=== PATIENT | female | born 1985 | race Caucasian/White ===

== ENCOUNTER 2021-05-12 10:48 | Outpatient (REF) | payer MEDICAID, SELFPAY ==
[2021-05-12 14:41] LABS: Alanine Aminotransferase 23 U/L (0-31); Albumin Level 4.3 g/dL (3.5-5.0); Alkaline Phosphatase 56 U/L (39-117); Anion Gap 12 (12-20); Aspartate Amino Transferase 18 U/L (5-31); Bilirubin Total < 0.2 mg/dL (0.0-1.0); Blood Urea Nitrogen 10 mg/dL (9-16); Calcium 9.3 mg/dL (8.4-10.2); Carbon Dioxide 26 mmol/L (22-29); Chloride 105 mmol/L (96-108); Cholesterol 227 mg/dL; Estimated Glomerular Filt Rate > 60; Glucose Fasting 110 mg/dL (60-99); HDL Cholesterol 53 mg/dL; LDL Cholesterol Calculated 150 mg/dl; Potassium 4.1 mmol/L (3.3-5.1); Sodium 139 mmol/L (135-145); Triglycerides 124 mg/dL
[2021-05-12 15:03] LABS: TSH reflex Free T4 0.74 uIU/mL (0.32-4.0)
[2021-05-13 08:20] LABS: HBc Num1 0.13 S/CO (0.00-0.79); Hepatitis B Core Antibody Nonreactive (Nonreactive); Hepatitis B Surface Antigen Negative (Negative); ~HepC Num1 0.18 S/CO (0.00-0.79); ~Hepatitis C Antibody Nonreactive (Nonreactive)
[2021-05-13 08:42] LABS: HBS Num1 32.69 mIU/mL (0-7.99); HIV AB/AG Nonreactive (Nonreactive); HIV Num 1 0.06 S/CO (0.00-0.99); ~Hepatitis B Surface Antibody REACTIVE (Nonreactive)
[2021-05-13 09:07] LABS: Syphilis Screen Nonreactive (Nonreactive)
== END 2021-05-12 10:49 | disposition home or self-care (01) ==
LOC: HO.WFDLDS 10:48
PROVIDERS: Visit Provider Family Medicine
DX: Z00.00 Encounter for general adult medical examination without abnormal findings (principal); Z11.3 Encounter for screening for infections with a predominantly sexual mode of transmission; Z11.4 Encounter for screening for human immunodeficiency virus [HIV]
CPT/HCPCS: 36415; 80053; 80061; 84443; 86704; 86706; 86780; 86803; 87340; 87389

== ENCOUNTER 2021-06-09 08:51 | Outpatient (REF) | payer OTHER, SELFPAY ==
[2021-06-10 10:58] LABS: CT PCR NOT DETECTED (Not Detect.); NG PCR NOT DETECTED (Not Detect.)
[2021-06-11 10:05] LABS: BV Int Neg Control Negative (Negative); BV Int Pos Control Positive (Positive)
[2021-06-11 16:37] LABS: HPV mRNA E6/E7 rflx Not Detected (Not Detected)
== END 2021-06-09 08:52 | disposition home or self-care (01) ==
LOC: HO.LAB 08:51
PROVIDERS: PCP Family Medicine; Visit Provider Advanced Practice Midwife
DX: Z01.411 Encounter for gynecological examination (general) (routine) with abnormal findings (principal); Z11.51 Encounter for screening for human papillomavirus (HPV); Z11.3 Encounter for screening for infections with a predominantly sexual mode of transmission; N92.0 Excessive and frequent menstruation with regular cycle; R10.2 Pelvic and perineal pain; G89.29 Other chronic pain; Z20.2 Contact with and (suspected) exposure to infections with a predominantly sexual mode of transmission
CPT/HCPCS: 87480; 87491; 87510; 87591; 87624; 87660; 88142

== ENCOUNTER 2021-06-10 09:48 | Outpatient (REF) | payer OTHER, SELFPAY ==
--- NOTE | 2021-06-10 12:58 | MHC.AU.ANR ---
Adult Audiological Evaluation Date of Visit: 06/10/21 Reason for Appointment: Audiological evaluation due to concern for decreased hearing. Patient reports that over the past several months she has noticed difficulty hearing and understanding speech, particularly from the right ear. She notes that the right ear feels blocked. She states that she's often asking for repetition and gets frustrated when she cannot hear well. Patient also notes that her primary care physician thought she had a perforation in the right tympanic membrane. She notes that she has had pain in the right ear as well. Patient reports that in 2018 she had an ear infection that lasted for eight months. She states that she was treated with several rounds of different antibiotics but it didn't seem to help. Does patient feel they have a hearing loss?: Yes If Yes, Which Ear?: Right Ear When Was Hearing Difficulty First Noticed?: over the past few months Has hearing been tested previously?: No Hearing Handicap Inventory: HHIE SCORE: 22 Based on HHIE score, patient has: Mild to moderate perceived hearing handicap Ear History: Recent Ear Pain: Right Ear Family History of Hearing Loss?: Yes Recent Ear Infections: Both Ears in 2018 Medical History: Medical History: Headache Allergies: Latex, powdered gloves, adhesives glue/tape Otoscopy: Right Ear: Unremarkable, did not visualize a perforation Left Ear: Unremarkable Tympanometry: Tympanometry performed due to: History of middle ear dysfunction Right Ear: Normal Middle Ear System (Type A) Left Ear: Normal Middle Ear System (Type A) Hearing Evaluation: Transducer(s) Used: Insert Earphones, Bone Conduction Method: Conventional Audiometry Stimuli Used: Pure Tones Right Ear: Description of Hearing: Normal hearing from 250-8000 Hz. There is a 10-20 dBHL air-bone gap in the right ear from 250-1000 Hz, indicating a mild conductive component. Left Ear: Description of Hearing: Normal hearing from 250-8000 Hz. Speech Recognition Threshold (SRT): Method Used: Monitored Live Voice Stimuli Used: Spondee Words Right Ear: 15 dBHL Left Ear: 15 dBHL Word Discrimination: Method: Recorded Lists Word Lists Used: NU-6 Right Ear: 92% at 55 dBHL Left Ear: 100% at 55 dBHL Interpretation of Results: Mild conductive component in the right ear, which may cause speech to sound muffled and cause the right ear to feel blocked. Recommendations: Audiological re-evaluation in one year. Referral to Ear, Nose, and Throat is recommended to address concerns for the right ear and slight conductive component. Diagnosis: Primary Diagnosis: H93.293 Abnormal Auditory Perception Services Performed: Services Performed: Comprehensive Audiological Evaluation (CPT 57938) Tympanometry (CPT 77078) Signature: Provider: Phillip Nieto, CCC-A
== END 2021-06-10 09:49 | disposition home or self-care (01) ==
LOC: HO.SH 09:48
PROVIDERS: Visit Provider Family Medicine
DX: H91.90 Unspecified hearing loss, unspecified ear (principal)
CPT/HCPCS: 92557; 92567

== ENCOUNTER 2021-07-09 10:00 | Outpatient (RCR) | payer OTHER, SELFPAY ==
--- NOTE | 2021-06-15 15:08 | MHC.PT.OD ---
[facility] [place] Office [place] Office [place] Office [address] Viridiana Rodriguez [address] [phone] F: [phone] F: [phone] F: [phone] F: [phone] Physical Therapy Daily Note Diagnosis: PT eval and treat; M25.562 Pain in left knee signed by Dr. Medrano on 05/13/21 Date of Surgery: Date of Evaluation: 06/04/21 Date of Treatment: 06/15/21 Treatments to Date: 3 Cancellations to Date: No Shows to Date: Authorized Visits: 12 Insurance End Date: Precautions/ Contraindications: Subjective: I just came from a four hour car ride and its killing me Pain Score and Location: 9. L KNEE Objective Flowsheet: Tests & Measures Exercises Seat #9 trialed after application of Zapata taping no added resistance for gentle revolution> posterior> fwd x 10 minutes Crepitus palpated on bike despite trial Zapata taping Standing prostretch x 30 sec hold x 5R each LE, standing gastroc/soleus stretch x 4R x 20 sec hold (issued for HEP), AROM heel prop knee extension stretch x 5 minutes (-3 today with passive knee extension stretch), isometric quad sets x 2 sets 10R, with bolster under knee- poor tolerance without support under knee, seated hamstring stretch x 4R x 20 sec hold. AROM heel slide (to 105 today) Standing active extension with quad set reviewed, encouraged gentle AROM avoidance of walking with knee flexed as able. Trialed Zapata taping for correction of L lateral tilt/glide with some improvement reduction in severity of sx noted. Trialed exercises with tape on, removed prior to leaving. Pt expressed relief with V strip ROCKtape application with education re: removal/application/educated to remove if irritating to skin. Education re: PFPS ortho info handout sheet for patient, education re: findings of evaluation, indications for treatment, advocated to reach out to MD to inform him poor outcome of trial of naproxen- asked to speak with MD inquire re: trial of using advil more than just at night due to (+) response with use, advocated use of ice prn Modalities Trial of Select TENS unit cross patterned around R knee while in flexion over bolster x 15 minutes knee setting intensity 3.5 ma in effort to ease patient's pain at start of session. Poor tolerance for passive extension trial. She reports use of rolling pin over ITB and quadriceps at home. Pt deferred ice. Assessment: Pt presents to third session of PT today, improving lack of knee extension AROM in supine and standing compared to initial evaluation. She is able to achieve with passive stretch -3 AAROM. She continues to exhibit poor quad strength, palpable crepitus under patella, and rates pain as 9/10 stating she drove 4 hours this am prior to session. She has hamstring and gastroc>soleus limitation, has been issued HEP to address tissue restrictions related to this. She also reports sx of pain consistent with plantar fasciitis> start of achilles tendonitis on her R LE. She is TTP medial jt line and posterior lateral joint line distal ITB L LE- consistent with PFPS and (reports of history of significant swelling back in February/March ? meniscal involvement. Educated re: multiple approaches to taping; will work to aide/support knee-cap to improve lateral tracking/reduce pain. Pt VERY sensitive to even light palpation over global knee and HS insertion this date. ?? psychosomatic She reports hx anxiety. Encouraged awareness for gentle knee extension in standing, educated can wear tape for multiple days (ROCKTAPE V strip to offload tibiofemoral joint with monitor of skin response. Pt has reported previous use of ROCKTape with no skin irritation. We trialed Zapata tape for patellar correction in the office but this was removed prior to patient leaving. She may benefit from referral to orthopedics; she inquires about need for xray. She has denies hx trauma; educate that course of therapy will take time. She may benefit from a trial of a patellar stabilizing sleeve in conjunction with ROM and strengthening activities. This could be obtained from orthopedics. AROM -3 to 105 with poor gait mechanics. PT Plan: KT VS ZAPATA TAPE FOR PATELLA ALIGNMENT, LE STRENGTHENING OPEN CHAIN>CLOSED CHAIN TOLERATED. ST WORK PRN. Short Term Goals: 1. L knee AROM -5 degrees ext. 2. Strength L SLR with good eccentric control. 3. Pain reduced by 50% during ADLs/IADLS. 4. Initiate HEP. Head Well Puller Goals: 1. L knee ext 0. 2. L knee flexion 135 sx <2/10. 3. Strengthen hip abductors 5/5 B. 4. Strengthen hip extension 5/5 B. Electronically signed by: Vane Forman PT, DPT
--- NOTE | 2021-06-18 10:51 | MHC.PT.OD ---
[facility] [place] Office [place] Office [place] Office [address] Viridiana Rodriguez [address] [phone] F: [phone] F: [phone] F: [phone] F: [phone] Physical Therapy Daily Note Diagnosis: PT eval and treat; M25.562 Pain in left knee signed by Dr. Medrano on 05/13/21 Date of Surgery: Date of Evaluation: 06/04/21 Date of Treatment: 06/18/21 Treatments to Date: 4 Cancellations to Date: No Shows to Date: Authorized Visits: 12 Insurance End Date: Precautions/ Contraindications: Subjective: Doing a little better, I slept well for the first time but I was really tired. Pain Score and Location: 9. L KNEE Objective Flowsheet: Tests & Measures Exercises Start of session no tape on gentle [employer] bike posterior revolutions x 10 minutes Standing prostretch x 30 sec hold x 5R each LE, standing gastroc/soleus stretch x 4R x 20 sec hold (issued for HEP), knee, seated hamstring stretch x 6R x 20 sec hold B, review of plantar fascia roll out with tennis ball, 4 way SLR with flexion, add, abd, and prone hip ext L LE encouraged bilaterally for HEP; Pt able to perform SLR for first time today without pain- educated start with midrange and work to full ROM as able Reviewed/educated patient re: self tape for tibiofemoral joint decompression with use of ROCKTAPE (educated re: application/removal/indications for use). Positive carryover with self care, pt reports obtaining tape for home. Education re: PFPS ortho info handout sheet for patient, education re: findings of evaluation, indications for treatment, advocated to reach out to MD to inform him poor outcome of trial of naproxen- asked to speak with MD inquire re: trial of using advil more than just at night due to (+) response with use, advocated use of ice prn Modalities Trial of Select TENS unit cross patterned around R knee while in flexion over bolster x 15 minutes knee setting intensity 3.5 ma in effort to ease patient's pain at start of session. Poor tolerance for passive extension trial. She reports use of rolling pin over ITB and quadriceps at home. Pt deferred ice. Assessment: Able to progress to 4 way SLR today now exhibits full L knee extension. Pt complaint with stretching program. Does express sx consistent with R plantar fasciitis, encouraged to stretch frequently through day, encouraged supportive sneakers will progress to CK strength as able. To see Dr. Medrano today for follow up. PT Plan: KT VS PALMER TAPE FOR PATELLA ALIGNMENT, LE STRENGTHENING OPEN CHAIN>CLOSED CHAIN TOLERATED. ST WORK PRN. Short Term Goals: 1. L knee AROM -5 degrees ext. 2. Strength L SLR with good eccentric control. 3. Pain reduced by 50% during ADLs/IADLS. 4. Initiate HEP. Senior Living Goals: 1. L knee ext 0. 2. L knee flexion 135 sx <2/10. 3. Strengthen hip abductors 5/5 B. 4. Strengthen hip extension 5/5 B. Electronically signed by: Vane Forman, PT, DPT
== END 2021-10-12 09:58 | disposition home or self-care (01) ==
LOC: HO.PTWFD 10:00
PROVIDERS: PCP Family Medicine; Visit Provider Family Medicine
DX: M25.562 Pain in left knee (principal)
CPT/HCPCS: 97014; 97110; 97140; 97162; 97535

== ENCOUNTER 2021-09-04 14:04 | Outpatient (REF) | payer OTHER, SELFPAY ==
[2021-09-04 15:02] LABS: Influenza A PCR NEGATIVE (Negative); Influenza B PCR NEGATIVE (Negative); Resp Syncy Virus RNA Qual PCR NEGATIVE (Negative); SARS COV2 PCR INHOUSE NEGATIVE (Negative)
== END 2021-09-04 14:05 | disposition home or self-care (01) ==
LOC: HO.LNP 14:04
PROVIDERS: Visit Provider Family Medicine
DX: Z20.822 Contact with and (suspected) exposure to COVID-19 (principal); B34.9 Viral infection, unspecified
CPT/HCPCS: 0241U

== ENCOUNTER 2023-09-29 13:46 | Outpatient (AMB) | payer OTHER, SELFPAY ==
[2023-09-29 13:52] VITALS: BP 148/82; PULSE 84; O2SAT 99; BMI 33.3
--- NOTE | 2023-09-29 13:52 | MHC.PC.OV ---
Vital Signs 09/29/23 13:52 Height 5 ft 4 in Weight 194 lb 2 oz BMI 33.3 BP 148/82 H Blood Pressure Location Lt brachial Position Sitting Pulse 84 Pulse Source Pulse Oximeter Pulse Oximetry (%) 99 Oxygen Delivery Method Room Air Intake Visit Reasons: CPE Intake Note: Patient is here for physical today, and would like to talk about digestive system. Allergies adhesive Allergy (Verified 09/29/23 13:55) swollen, rash latex Allergy (Verified 09/29/23 13:55) rash Tobacco use date assessed: 09/29/23 Dental Screening Dental Screen Date: 09/29/23 Did you have a dental visit in the last 12 months?: No Did you have a dental problem in the last 6 months where you did not have access to dental care?: No Was dental information given to patient?: Yes HPI CPE HPI Details 38 y/o female presents for an extended exam with f/u labs and health maintenance. No recent labs to review. She does have a hx of pre-diabetes. Last A1c 06/18/21 5.7%. A1c today 09/29/22 is 6.1%. She has complaints of GI issues whenever she consumes dairy products such as milk/cheese. She does note yogurt is fine. Pt reports hearing changes. [facility] Medical History (Updated 09/29/23 @ 14:17 by Ishan Meraz) Gastrointestinal complaint Asthma Surgical History History of cholecystectomy History of Family History Father Hypertension Mother Hypertension Kidney stones Brother Substance abuse Social History Household Members: Children Housing: Condominium Alcohol intake: current Alcohol intake frequency: a few times a week Patient Tobacco Use Status: Never used Tobacco e-Cigarette/Vaping Use: Never Used service: No Current occupational status: employed Sexual 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/Heterosexual Gender identity: Female Cognitive needs: No Hearing needs: No Vision needs: Yes (Patient has prescription) Female Reproductive History Menstrual Age of Menarche: 19 Questionnaire Thrive Questionnaire Date Thrive assessed: 05/12/21 BRANDY-7 AMB Questionnaire BRANDY-7 Date BRANDY - 7 assessed: 05/12/21 Source: Developed by Drs. Keagan Martinez, Cecilia Reynaga, Dre Do and colleagues, with an educational rashaun from [employer]. Review of Systems Const Denies chills, Denies fatigue, Denies fever(s), Denies headache(s) and Denies weakness Eyes Denies change in vision ENT Denies dizziness, Denies headache(s), Denies hearing loss, Denies nasal congestion, Denies sinus pain, Denies sinus pressure and Denies sore throat Card Denies chest pain, Denies lightheadedness, Denies dyspnea and Denies other (palpitations) Resp Denies cough, Denies dyspnea and Denies wheezing GI Denies abdominal pain, Denies melena, Denies hematochezia, Denies change in bowel habits, Denies dyspepsia and Denies nausea Denies hematuria and Denies dysuria Musc Denies abnormal gait, Denies myalgias, Denies arthralgias, Denies numbness and Denies tingling Skin/Breast Denies rash, Denies unusual bruising and Denies wounds Neuro Denies abnormal gait, Denies dizziness, Denies headache(s), Denies memory loss, Denies numbness, Denies Sensory deficit (Neuro), Denies tingling and Denies weakness Psych Denies anxiety, Denies depression and Denies memory loss Endo Denies cold intolerance, Denies fatigue, Denies heat intolerance, Denies polydipsia and Denies polyuria Alejandro/Lymph Denies easy bleeding and Denies easy bruising Aller/Immun Denies wheezing Physical exam (Primary Care) Vital Signs: Last Vital Signs Pulse 84 09/29/23 13:52 BP 148/82 H 09/29/23 13:52 Pulse Ox 99 09/29/23 13:52 Oxygen Delivery Method Room Air 09/29/23 13:52 BMI result Body Mass Index 33.3 Tobacco/Smoking Status: Tobacco use Status Tobacco use date assessed 09/29/23 09/29/23 14:03 Patient Tobacco Use Status Never used Tobacco 09/29/23 14:03 e-Cigarette/Vaping Use Never Used 09/29/23 14:03 Thrive Assessment: Date of Thrive Assessment Date Thrive assessed 05/12/21 09/29/23 14:03 Const General: no acute distress, well developed, alert and awake Nutritional Appearance: well nourished Orientation/consciousness: patient oriented x3 HENMT Head: Yes normocephalic and Yes atraumatic Ears: hearing grossly normal bilaterally and TM's normal bilaterally General nose exam: Normal external nose present and Normal nares present Mouth: Normal oral and palatal mucosa present and moist mucous membranes Teeth and gingiva: dentition normal Throat: Yes posterior oropharynx normal Eyes General: appearance normal, both eyes and all related structures Pupils: Equal, round and reactive pupils present and Pupil accommodation reflex normal EOM: EOMs intact bilaterally Neck Neck: Yes normal visual inspection, Yes no lymphadenopathy and Yes trachea midline Thyroid: Thyroid normal Carotids: no bruits Lymphatic: no lymphadenopathy noted Chest Chest palpation & inspection: normal inspection of the chest Resp Effort & Inspection: normal respiratory effort Auscultation: clear to auscultation bilaterally Cardio Rate: regular rate Rhythm: regular rhythm Heart sounds: S1 normal heart sound present, S2 normal heart sound present, no gallops, no murmurs and no rubs Bruits: no abdominal aortic bruits and no carotid bruits GI Palpation (GI): No Abdominal aortic bruit present, Soft to palpation, nontender, No hepatosplenomegaly present and No Rebound tenderness present Auscultation: normal bowel sounds General: Yes no CVA tenderness Back/Spine/Pelvis Back: no CVA tenderness Cervical Spine: cervical ROM normal and No Cervical spine tenderness Thoracic/Lumbar Spine: thoraco-lumbar ROM normal, No pain with thoraco-lumbar ROM, No thoracic spinal tenderness and No lumbar spinal tenderness Skin Lesions: no lesions Rashes: no rashes Trauma: no lacerations or abrasions Wounds: no wounds Nails: normal Neuro General: patient oriented x3 Cranial nerves: Yes Equal, round and reactive pupils present Cognition (Neuro): normal cognition Gait exam (Neuro): Normal gait present Motor exam (neuro): 5/5 motor strength present throughout Sensory Exam: No Sensory deficit (Neuro) Deep tendon reflexes (DTR's): Right patellar reflex intensity grade: 2+ and Left patellar reflex intensity grade: 2+ Extrem General: Yes normal to inspection and No edema Psych Appearance: grossly normal Affect: normal affect Attitude: cooperative Thought process: Normal thought process present Results AMB Hemoglobin A1c AMB Hemoglobin A1c 6.1 % Last Edit by Tana Borden CMA on 09/29/23 14:26 Assessment and Plan Assessment & Plan (1) Hypertension: Code(s): I10 - Essential (primary) hypertension Plan: Blood?pressure?elevated.??Patient?says?that?she?is?somewhat?aggravated?today. However,?blood?pressure?was?prehypertensive?at?last?check?and?she?has?gained?some?weight. Will?follow-up?at?next?visit We?discussed?that?if?blood?pressures?are?still?in?hypertensive?range,?we?should?consider?medication. (2) Pre-diabetes: Code(s): R73.03 - Prediabetes Plan: Patient's?A1c?was?5.7%?at?last?check?and?now?6.1%. Worsened?pre?diabetes She?has?gained?weight?since?last?check Encouraged?a?diet?low?in?sugars?and?starches.??Encouraged?weight?loss?and?exercise. (3) Screening for cervical cancer: Code(s): Z12.4 - Encounter for screening for malignant neoplasm of cervix Plan: Followed?by?[facility]?and?I?recommended?she?follow-up?with?him?again?to?remain?up-to-date?on?Pap?smear. (4) Hearing loss: Code(s): H91.90 - Unspecified hearing loss, unspecified ear Plan: Patient?does?have?some?hearing?loss She?feels?that?it?is?a?little?bit?worsened?and?at?last?check?she?did?not?qualify?for?amplification She?does?not?feel?that?she?can?afford?additional?hearing?testing She?could?consider?OTC?hearing?aids?to?see?if?those?are?helpful. She?will?let?me?know?if?she?would?like?additional?referrals. (5) Dairy product intolerance: Code(s): K90.49 - Malabsorption due to intolerance, not elsewhere classified Plan: She?can?try?a?lactase?enzyme?supplement. Also?advised?she?avoid?dairy?products?that?cause?her?problems (6) Adult general medical exam: Code(s): Z00.00 - Encounter for general adult medical examination without abnormal findings Plan: 38-year-old?female?presents?for?extended?exam Encouraged?healthy?diet?with?active?lifestyle?and?plenty?of?exercise She?will?get?her?labs?drawn?prior?to?her?next?visit?and?we?can?follow-up?on?these Orders: Orders Comprehensive [place]. Panel Fast Today Z00.00 - Encounter for general adult medical examination without abnormal findings Lipid Panel Today Z00.00 - Encounter for general adult medical examination without abnormal findings Microalbumin, Random (w Creat) Today I10 - Essential (primary) hypertension UA and rflx microscopic Today Z00.00 - Encounter for general adult medical examination without abnormal findings TSH reflex Free T4 Today Z00.00 - Encounter for general adult medical examination without abnormal findings AMB Hemoglobin A1c Today R73.03 - Prediabetes, Z13.9 - Encounter for screening, unspecified Medications: Refilled fluticasone propion-salmeterol 100-50 mcg/dose 1 inh inhalation Q12H 30 days 60 ea 3RF R73.03 - Prediabetes albuterol sulfate 90 mcg/actuation (ProAir HFA) 2 puffs inhalation Q4-6H 30 days PRN 8.5 grams 3RF shortness of breath or wheezing R73.03 - Prediabetes Coding Level of Care Code Est Pt Level 4 (70520) Diagnoses Hypertension I10 Pre-diabetes R73.03 Screening for cervical cancer Z12.4 Hearing loss H91.90 Dairy product intolerance K90.49 Adult general medical exam Z00.00
== END 2023-09-29 14:41 | disposition home or self-care (01) ==
PROVIDERS: PCP Family Medicine; Visit Provider Family Medicine
DX: Z00.00 Encounter for general adult medical examination without abnormal findings (principal); I10 Essential (primary) hypertension; R73.03 Prediabetes; K90.49 Malabsorption due to intolerance, not elsewhere classified; H91.93 Unspecified hearing loss, bilateral
CPT/HCPCS: 83036; 99395

== ENCOUNTER 2023-11-22 15:15 | Outpatient (AMB) | payer OTHER, SELFPAY ==
--- NOTE | 2023-11-22 15:21 | MHC.PC.OV ---
Vital Signs 11/22/23 15:22 Height 5 ft 4 in Weight 192 lb BMI 33.0 BP 144/74 H Blood Pressure Location Rt brachial Position Sitting Respiration 14 Pulse 93 Pulse Source Pulse Oximeter Temp 97 F Temp Source Temporal Artery Scan Pulse Oximetry (%) 99 Oxygen Delivery Method Room Air Intake Visit Reasons: Stomach Pain/Irregular [employer] Required: No Accompanied by: Son Allergies adhesive Allergy (Verified 11/22/23 15:34) swollen, rash latex Allergy (Verified 11/22/23 15:34) rash Medication List - Last Reconciled 11/22/23 by Aria Jones CNP albuterol sulfate 90 mcg/actuation (ProAir HFA) 2 puffs inhalation Q4-6H PRN 30 days fluticasone propion-salmeterol 100-50 mcg/dose 1 inh inhalation Q12H 30 days Tobacco use date assessed: 09/29/23 Dental Screening Dental Screen Date: 11/22/23 Did you have a dental visit in the last 12 months?: No Did you have a dental problem in the last 6 months where you did not have access to dental care?: No Was dental information given to patient?: Yes HPI HPI Comments History of Present Illness Details 38-year-old female presents with complaints of generalized abdominal pain, bloating, and heartburn after eating even small portions of food. She notes soft, thin stools daily, and sometimes multiple times daily. Her symptoms have been ongoing for several months and worsened in the past few weeks. She thought her symptoms were related to diary food and therefore stopped eating diary without improvement. No constipation, nausea, vomiting, or urinary symptoms. 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 Keagan Martinez, Cecilia Reynaga, Dre Do and colleagues, with an educational rashaun from [employer]. Review of Systems Const Details: Const Denies chills, Denies fatigue, Denies fever(s), Denies headache(s) and Denies weakness ENT Denies dizziness and Denies headache(s) Card Denies chest pain, Denies lightheadedness, Denies dyspnea and Denies other (Palpitations) Resp Denies cough, Denies dyspnea, Denies wheezing and Denies other ( shortness of breath) GI Reports as per HPI Denies hematuria and Denies dysuria Musc Denies abnormal gait, Denies myalgias, Denies arthralgias, Denies numbness and Denies tingling Skin/Breast Denies rash, Denies unusual bruising and Denies wounds Neuro Denies abnormal gait, Denies dizziness, Denies headache(s), Denies memory loss, Denies numbness, Denies Sensory deficit (Neuro), Denies tingling and Denies weakness Psych Denies anxiety, Denies depression, Denies memory loss Endo Denies cold intolerance, Denies fatigue, Denies heat intolerance, Denies polydipsia and Denies polyuria Aller/Immun Denies wheezing Physical exam (Primary Care) Vital Signs: Last Vital Signs Temp 97 F 11/22/23 15:22 Pulse 93 11/22/23 15:22 Resp 14 11/22/23 15:22 BP 144/74 H 11/22/23 15:22 Pulse Ox 99 11/22/23 15:22 Oxygen Delivery Method Room Air 11/22/23 15:22 BMI result Body Mass Index 33.0 Tobacco/Smoking Status: Tobacco use Status Tobacco use date assessed 09/29/23 11/22/23 15:24 Patient Tobacco Use Status Never used Tobacco 11/22/23 15:24 e-Cigarette/Vaping Use Never Used 11/22/23 15:24 Thrive Assessment: Date of Thrive Assessment Date Thrive assessed 05/12/21 11/22/23 15:24 Const Other: General: no acute distress and well developed Nutritional Appearance: well nourished Orientation/consciousness: patient oriented x3 [facility] Head: Yes normocephalic and Yes atraumatic Eyes General: appearance normal, both eyes and all related structures Pupils: Equal, round and reactive pupils present EOM: EOMs intact bilaterally Resp Effort & Inspection: normal respiratory effort Auscultation: clear to auscultation bilaterally Cardio Rate: regular rate Rhythm: regular rhythm Heart sounds: S1 normal heart sound present, S2 normal heart sound present, no gallops, no murmurs and no rubs GI Palpation (GI): No Abdominal aortic bruit present, Soft to palpation, tender, No hepatosplenomegaly present and No Rebound tenderness present Auscultation: Hypoactive bowel sounds General: Yes no CVA tenderness Back/Spine/Pelvis Back: no CVA tenderness Cervical Spine: cervical ROM normal and No Cervical spine tenderness Thoracic/Lumbar Spine: thoraco-lumbar ROM normal, No pain with thoraco-lumbar ROM, No thoracic spinal tenderness and No lumbar spinal tenderness Extrem General: Yes normal to inspection, No edema and No calf tenderness Skin General: warm and dry. Normal skin color. Normal skin turgor Neuro General: patient oriented x3, gait normal and no focal neuro deficit Cranial nerves: Yes Equal, round and reactive pupils present Cognition (Neuro): normal cognition Gait exam (Neuro): Normal gait present Sensory Exam: No Sensory deficit (Neuro) Psych Appearance: grossly normal Affect: normal affect Attitude: cooperative Thought process: Normal thought process present Assessment and Plan Assessment & Plan (1) Abdominal pain: Code(s): R10.9 - Unspecified abdominal pain Plan: Reports generalized abdominal pain, bloating, and heartburn after eating, even small portions of food. She also has soft, thin stools daily, or multiple times daily She stopped eating dietary food without improvement Likely gastritis or constipation, although gastroparesis is possible Will trial magnesium oxide 500 mg daily and omeprazole 20 mg daily. Advised to take as prescribed Healthy diet and adequate hydration encouraged Follow-up with PCP in 1 month or return sooner with worsening or new symptoms Verbalized understanding and agreed with treatment plan (2) Heartburn: Code(s): R12 - Heartburn Plan: As above Medications: New magnesium oxide 500 mg PO DAILY 30 tabs 1RF 30 days omeprazole 20 mg PO DAILY 30 caps 1RF 30 days Coding Level of Care Code Est Pt Level 4 (64498) Diagnoses Abdominal pain R10.9 Heartburn R12
[2023-11-22 15:22] VITALS: BP 144/74; PULSE 93; RESP 14; TEMP 36.1; O2SAT 99; BMI 33.0
== END 2023-11-22 15:49 | disposition home or self-care (01) ==
PROVIDERS: PCP Family Medicine; Visit Provider Nurse Practitioner Family
DX: R10.9 Unspecified abdominal pain (principal); R12 Heartburn
CPT/HCPCS: 99214

== ENCOUNTER 2023-12-30 07:30 | Outpatient (REF) | payer OTHER, SELFPAY ==
[2023-12-30 12:02] LABS: Alanine Aminotransferase 22 U/L (0-31); Alkaline Phosphatase 62 U/L (39-117); Anion Gap 11 (12-20); Aspartate Amino Transferase 19 U/L (5-31); Bilirubin Total 0.4 mg/dL (0.0-1.0); Blood Urea Nitrogen 10 mg/dL (9-16); Calcium 9.3 mg/dL (8.4-10.2); Carbon Dioxide 28 mmol/L (22-29); Chloride 105 mmol/L (96-108); Cholesterol 197 mg/dL (<200); Estimated Glomerular Filt Rate > 60; Glucose Fasting 119 mg/dL (60-99); HDL Cholesterol 44 mg/dL (>40); LDL Cholesterol Calculated 129 mg/dL (<100); Magnesium 2.1 mg/dL (1.6-2.6); Potassium 3.4 mmol/L (3.3-5.1); Sodium 141 mmol/L (135-145); Total Protein 7.3 g/dL (6.5-8.0); Triglycerides 122 mg/dL (<150)
[2023-12-30 12:05] LABS: TSH reflex Free T4 1.42 uIU/mL (0.32-4.0)
== END 2023-12-30 07:31 | disposition home or self-care (01) ==
LOC: HO.WFDLDS 07:30
PROVIDERS: Visit Provider Family Medicine
DX: Z00.00 Encounter for general adult medical examination without abnormal findings (principal); E83.42 Hypomagnesemia; Z13.220 Encounter for screening for lipoid disorders; Z13.29 Encounter for screening for other suspected endocrine disorder
CPT/HCPCS: 36415; 80053; 80061; 83735; 84443

== ENCOUNTER 2024-01-02 13:40 | Outpatient (REF) | payer OTHER, SELFPAY ==
[2024-01-03 12:09] LABS: Appearance Urine Clear; Color Urine Yellow; Glucose Urine UA Negative (Negative); Leukocyte Esterase Urine Negative (Negative); Nitrite Urine Negative (Negative); PH 6.5 (5.0-9.0); UMIC TRIGGER UA YES; Urine Blood Small (1+) (Negative); Urine Ketones Negative (Negative); Urine Protein Negative (Neg-Trace)
[2024-01-03 12:24] LABS: Bacteria Urine None Seen (None Seen); Hyaline Casts Urine 0-2 /LPF (0-2); RBC Urine 0-2 /HPF (0-2); WBC Urine 0-5 /HPF (0-5)
[2024-01-03 13:05] LABS: Creatinine Urine 40.17 mg/dL; Microalbumin Urine < 5.0 mg/L
== END 2024-01-02 13:41 | disposition home or self-care (01) ==
LOC: HO.LNP 13:40
PROVIDERS: Visit Provider Family Medicine
DX: Z00.00 Encounter for general adult medical examination without abnormal findings (principal); I10 Essential (primary) hypertension
CPT/HCPCS: 81001; 81003; 82043; 82570

== ENCOUNTER 2024-01-02 13:40 | Outpatient (AMB) | payer OTHER, SELFPAY ==
[2024-01-02 13:51] VITALS: BP 130/76; PULSE 92; O2SAT 98; BMI 33.5
--- NOTE | 2024-01-02 13:51 | A.OFFPC_ITS ---
Vital Signs 01/02/24 13:51 Height 5 ft 4 in Weight 195 lb BMI 33.5 BP 130/76 Blood Pressure Location Lt brachial Position Sitting Pulse 92 Pulse Source Pulse Oximeter Pulse Oximetry (%) 98 Oxygen Delivery Method Room Air Intake Visit Reasons: f/u hypertension and pre-diabetes Intake Note: Patient is here for follow up on hypertension and prediabetes Allergies adhesive Allergy (Verified 01/02/24 14:03) swollen, rash latex Allergy (Verified 01/02/24 14:03) rash Medication List - Last Reconciled 01/02/24 by Vipin Medrano MD albuterol sulfate 90 mcg/actuation (ProAir HFA) 2 puffs inhalation Q4-6H PRN 30 days fluticasone propion-salmeterol 100-50 mcg/dose 1 inh inhalation Q12H 30 days magnesium oxide 500 mg PO DAILY 30 days omeprazole 20 mg PO DAILY 30 days Tobacco use date assessed: 09/29/23 Dental Screening Dental Screen Date: 11/22/23 HPI f/u hypertension and pre-diabetes HPI Details 38 y/o female presents to f/u hypertensi on and pre-diabetes. Blood pressure today 130/76. Pt states she continues to watch her diet. Labs were drawn 12/30/23. Reviewed labs with pt. Triglycerides 122. TC 197. LDL 129. HDL 44. Elevated fasting gucose of 119 and last A1c in September 6.1%. PHQ-9 4 and BRANDY-7 18 today. A1c today 01/02/24 is 6.9%. Pt reports ongoing abdominal bloating. She has cut out all dairy and is unable to consume alcohol. Pt notes omeprazole has been working well for her. HPI Comments History of Present Illness Details Documentation assistance for Vipin Medrano MD, was provided by Ishan Meraz,? Patient Accounts Manager on 01/02/2024 2:29 PM EST. I, Dr. Medrano, have read, observed, and verified documentation. 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 1. Little interest or pleasure in doing things: not at all 2. Feeling down, depressed, or hopeless: not at all 3. Trouble falling or staying asleep, or sleeping too much: nearly every day 4. Feeling tired or having little energy: not at all 5. Poor appetite or overeating: several days 6. Feeling bad about yourself - or that you are a failure or have let yourself or your family down: not at all 7. Trouble concentrating on things, such as reading the newspaper or watching television: not at all 8. Moving or speaking so slowly that other people could have noticed. Or the opposite - being so fidgety or restless that you have been moving around a lot more than usual: not at all 9. Thoughts that you would be better off or of hurting yourself in some way: not at all Total score: 4 Depression Screening Interpretation: Negative Depression Screening Done: Yes 74152 - PHQ-9 Billing: Yes Source: Developed by Drs. Keagan Martinez, Cecilia Reynaga, Dre Do and colleagues, with an educational rashaun from [employer]. Thrive Questionnaire Date Thrive assessed: 01/02/24 I am a: Patient What is your living situation today?: I have a steady place to live Within the past 12 months, did the food you bought not last and you didn't have the money to get more?: Never true Within the past 12 months, did you worry whether your food would run out before you got money to buy more?: Never true Do you have trouble paying for medicines?: No Do you have trouble getting transportation to medical appointments?: No Do you have trouble paying your heating and electricity bill?: No Do you have trouble taking care of your child, family member or friend?: No Do you have trouble with day-to-day activities such as bathing, preparing meals, shopping, managing finances, etc.?: No Are you currently unemployed and looking for a job?: No Are you interested in more education?: No THRIVE Score: 0 AUDIT C Alcohol Use Questionnaire (AUDIT-C) 1. How often do you have a drink containing alcohol?: Never 3. How often do you have six or more drinks on one occasion?: Never Total Score: 0 BRANDY-7 AMB Questionnaire BRANDY-7 Date BRANDY - 7 assessed: 01/02/24 Feeling nervous, anxious, or on edge: 3 = Nearly every day Not being able to stop or control worryin = Nearly every day Worrying too much about different things: 3 = Nearly every day Trouble relaxin = Nearly every day Being so restless that it is hard to sit still: 3 = Nearly every day Becoming easily annoyed or irritable: 3 = Nearly every day Feeling afraid as if something awful might happen: 0 = Not at all Total BRANDY-7 score (0-4 normal; 5-9 mild; 10-14 moderate; 15-21 severe): 18 Source: Developed by Drs. Keagan Martinez, Cecilia Reynaga, Dre Do and colleagues, with an educational rashaun from [employer]. BRANDY-7 Assessment Billing BRANDY-7 Assessment Tool: BRANDY-7 Assessment 50209 ACT Questionnaire In the past 4 weeks, how much of the time did your asthma keep you from getting as much done at work, school or at home?: None of the time During the past 4 weeks, how often have you had shortness of breath?: Not at all (every couple of weeks.) During the past 4 weeks, how often did your asthma symptoms wake you up at night or earlier than usual in the morning?: Not at all During the past 4 weeks, how often have you had to use your rescue inhaler or nebulizer medication?: Not at all How would you rate your asthma control during the past 4 weeks?: Well controlled Score: 24 Review of Systems Const Denies chills, Denies fatigue, Denies fever(s), Denies headache(s) and Denies weakness ENT Denies dizziness and Denies headache(s) Card Denies dyspnea Resp Denies cough, Denies dyspnea, Denies wheezing and Denies other (shortness of breath) Musc Denies numbness and Denies tingling Neuro Denies dizziness, Denies headache(s), Denies numbness, Denies tingling and Denies weakness Psych Reports anxiety Endo Denies fatigue Aller/Immun Denies wheezing Physical exam (Primary Care) Vital Signs: Last Vital Signs Pulse 92 01/02/24 13:51 BP 130/76 01/02/24 13:51 Pulse Ox 98 01/02/24 13:51 Oxygen Delivery Method Room Air 01/02/24 13:51 BMI result Body Mass Index 33.5 Tobacco/Smoking Status: Tobacco use Status Tobacco use date assessed 09/29/23 01/02/24 13:51 Patient Tobacco Use Status Never used Tobacco 01/02/24 13:51 e-Cigarette/Vaping Use Never Used 01/02/24 13:51 PHQ-9: PHQ-9 Score PHQ-9: Total score 4 01/02/24 14:21 Depression Screening Interpretation: Negative Thrive Assessment: Date of Thrive Assessment Date Thrive assessed 01/02/24 01/02/24 14:04 Const General: well developed; No acute distress Nutritional Appearance: well nourished Orientation/consciousness: patient oriented x3 [facility] Head: Yes normocephalic and Yes atraumatic Eyes General: appearance normal, both eyes and all related structures Pupils: Equal, round and reactive pupils present EOM: EOMs intact bilaterally Resp Effort & Inspection: normal respiratory effort Auscultation: clear to auscultation bilaterally Cardio Rate: regular rate Rhythm: regular rhythm Heart sounds: S1 normal heart sound present, S2 normal heart sound present, no gallops, no murmurs and no rubs Neuro General: patient oriented x3 and gait normal Cranial nerves: Yes Equal, round and reactive pupils present Psych Affect: normal affect Results AMB Hemoglobin A1c AMB Hemoglobin A1c 6.9 % Last Edit by Tana Borden CMA on 01/02/24 14:32 AMB Hemoglobin A1c previously reported as 6.3 Tana Borden 01/02/24 14:32 Results Reviewed Results Reviewed: Laboratory Last Values Hgb A1c (Clinic) 6.3 % (4.0-6.0) H 01/02/24 14:30 Assessment and Plan Assessment & Plan (1) Hypertension: Code(s): I10 - Essential (primary) hypertension Plan: BP in prehypertensive range Encouraged?diet?low?in?salt/sodium Encouraged?weight?loss?and?exercise Will?follow (2) Diabetes: Code(s): E11.9 - Type 2 diabetes mellitus without complications Plan: A1c?6.9%;?diabetes. Goal?is?less?than?7.0% Patient?also?has?problems?with?weight?loss?and?obesity She?would?like?to?try?Ozempic Sh e?will?let?me?know?if?she?is?having?any?problems?with?this?medication?or?obtaini ng?it?as?we?also?discussed?metformin. Encouraged?diet?lower?in?sugars?and?starches Encouraged?exercise?and?weight?loss (3) Anxiety: Code(s): F41.9 - Anxiety disorder, unspecified Plan: Anxiety?but?patient?declines?medication?or?therapy Encouraged?relaxation?and?exercise (4) Abdominal bloating: Code(s): R14.0 - Abdominal distension (gaseous) Plan: Heartburn,?abdominal?bloating?and?abdominal?discomfort She?was?given?omeprazole?which?has?helped. Still?has?heartburn?however?and?I?will?refer?her?to? Gastroenterology?to?rule?out?ulcers Continue?omeprazole Avoid?trigger?foods Encouraged?patient?to?also?work?on?relaxation?as?anxiety?can?increase?GI?symptom s (5) Heartburn: Code(s): R12 - Heartburn Plan: As?above Orders: Orders AMB Hemoglobin A1c Today Z13.9 - Encounter for screening, unspecified Referrals Gastroenterology Referral R12 - Heartburn, R14.0 - Abdominal distension (gaseous) Medications: New semaglutide (Ozempic) for 4 weeks 0.25 mg (0.368 mL) subcut QWEEK 28 days 1.472 mL 2RF E11.9 - Type 2 diabetes mellitus without complications, E66.9 - Obesity, unspecified Coding Level of Care Code Est Pt Level 4 (39019) Diagnoses Hypertension I10 Diabetes E11.9 Anxiety F41.9 Abdominal bloating R14.0 Heartburn R12 Additional Codes BRANDY-7 Assessment Billing - BRANDY-7 Assessment Tool: BRANDY-7 Assessment 99442 ([id number])
== END 2024-01-02 14:44 | disposition home or self-care (01) ==
PROVIDERS: PCP Family Medicine; Visit Provider Family Medicine
DX: I10 Essential (primary) hypertension (principal); E11.9 Type 2 diabetes mellitus without complications; F41.9 Anxiety disorder, unspecified; R14.0 Abdominal distension (gaseous); R12 Heartburn; R73.03 Prediabetes
CPT/HCPCS: 83036; 99214

== ENCOUNTER 2024-01-02 14:17 | Outpatient (REF) | payer OTHER, SELFPAY | END 2024-01-02 14:18 | disposition home or self-care (01) | LOC: HO.LAB 14:17 | PROVIDERS: Visit Provider Family Medicine | DX: Z13.89 Encounter for screening for other disorder (principal) ==

== ENCOUNTER 2024-02-29 08:31 | Outpatient (AMB) | payer OTHER, SELFPAY ==
--- NOTE | 2024-02-29 08:47 | MHC.OFFVIS ---
Vital Signs 02/29/24 08:57 Height 5 ft 4 in Weight 191 lb 5.78 oz BMI 32.8 BP 126/74 Blood Pressure Location Lt brachial Position Sitting Pulse 84 Pulse Source Pulse Oximeter Pulse Oximetry (%) 98 Oxygen Delivery Method Room Air Intake Visit Reasons: Abdominal distension (gaseous) Intake Note: Trice presents in office today for a new pt visit. CC; Pt reports that they are expecting that they will need an egd, colo, and allergen testing for their sx which include; moderate to severe abdominal distention and bloating, as well as moderate constipation. Pt also reports general abdominal discomfort and GI upset. Pt reports that hey can occasionally feel their location of their sx / pain moving throughout their bowels. Pt reports primary locations including B/L UQ. Pt is status post cholecystectomy. Pt reports that she has also noticed a significant weight gain over the course of the last year. Pt reports that they have noticed a gain of approximately 30 lbs. 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 Patient reports that her symptoms started after Thanksgiving. Patient reports that she began after Thanksgiving meal having upper abdominal pain and severe bloating. Unable to have a bowel movement for almost a week. Currently she feels like her bowels have normalized right now, however she continues to have epigastric pain. Patient felt like the lactose was making her more constipated so she stopped. Currently patient is having abdominal bloating and epigastric pain with different food. Patient is trying to pinpoint what is causing her to have those symptoms. Patient states that for Collado's Day she had 1 drink and she started with severe epigastric pain. Patient is taking omeprazole 20 mg daily. Patient states that she believes that she was on omeprazole that time. Patient has not had any alcohol since that time. Patient states that she is afraid to drink anything, afraid that she will have the pain again. Patient denies any nausea or vomiting. Denies any diarrhea. Patient denies melena, hematochezia, unintentional weight loss or ribbon like stools. History of upper endoscopy in the past. PFSH Medical History (Updated 02/29/24 @ 19:28 by Elvira Curtis [facility]) Diabetes Gastrointestinal complaint Asthma Surgical History (Updated 02/29/24 @ 09:00 by DEBBIE Dhaliwal) H/O endoscopy History of cholecystectomy History of Family History Father Hypertension Mother Hypertension Kidney stones Hernia, hiatal Esophageal dilatation Brother Substance abuse Other Crohn's disease involving stomach Social History Household Members: Children Housing: Apartment Alcohol intake: current Alcohol intake frequency: a few times a week Patient Tobacco Use Status: Never used Tobacco e-Cigarette/Vaping Use: Never Used service: No Current occupational status: employed 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 [employer] Sexual 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/Heterosexual Gender identity: Female Cognitive needs: No Hearing needs: No Vision needs: No (Patient has prescription) Female Reproductive History Menstrual Age of Menarche: 19 Review of Systems Const Denies weight gain and Denies weight loss ENT Reports no additional complaints, Denies dysphagia and Denies odynophagia Card Reports no additional complaints Resp Reports no additional complaints GI Reports abdominal pain (upper abdomen), Denies belching, Denies melena, Reports bloating, Denies change in bowel habits, Reports constipation, Denies dysphagia, Denies excessive flatus, Reports dyspepsia, Reports heartburn, Denies diarrhea, Denies loose stools, Denies nausea, Denies odynophagia and Denies vomiting Reports no additional complaints Musc Reports no additional complaints Neuro Reports no additional complaints Psych Reports no additional complaints Endo Reports no additional complaints Physical Exam Vital Signs: Last Vital Signs Pulse 84 02/29/24 08:57 BP 126/74 02/29/24 08:57 Pulse Ox 98 02/29/24 08:57 Oxygen Delivery Method Room Air 02/29/24 08:57 BMI result Body Mass Index 32.8 Const General: healthy appearing and no acute distress Nutritional Appearance: obese Orientation/consciousness: patient oriented x3 Resp Effort & Inspection: normal respiratory effort, able to speak in complete sentences, no tracheal deviation and symmetric chest movement Auscultation: clear to auscultation bilaterally Cardio Rate: regular rate GI Inspection: Yes normal to inspection, No distended and Yes obesity Palpation (GI): Soft to palpation, not firm, nontender and No hepatosplenomegaly present Auscultation: normal bowel sounds General: Yes no CVA tenderness Back/Spine/Pelvis Back: no CVA tenderness Skin General skin exam: elasticity normal, turgor normal and dry skin Neuro General: patient oriented x3 Psych Appearance: grossly normal Mental Status: mental status grossly normal Assessment & Plan Assessment & Plan (1) Abdominal bloating: Code(s): R14.0 - Abdominal distension (gaseous) Category: Medical (2) Heartburn: Code(s): R12 - Heartburn Category: Medical (3) Abdominal pain: Code(s): R10.9 - Unspecified abdominal pain Category: Medical Qualifiers: Abdominal location: epigastric Qualified Code(s): R10.13 - Epigastric pain (4) Dairy product intolerance: Code(s): K90.49 - Malabsorption due to intolerance, not elsewhere classified Category: Medical (5) Postprandial epigastric pain: Code(s): R10.13 - Epigastric pain (6) Postprandial abdominal bloating: Code(s): R14.0 - Abdominal distension (gaseous) Plan Will rule out celiac, pancreatitis, pancreatic insufficiency. Will check vitamin B12, folate vitamin-D level. Patient was taking senna to help her evacuate her bowels better. Patient currently is moving her bowels, however feels like she has not emptying them completely. Discussed with patient low FODMAP diet. List of food recommended as well as list of food to avoid given to patient. Patient will return to the office in 5-6 weeks, sooner on as needed basis. She is agreeable to this plan and verbalizes understanding of instructions. She was given the opportunity to ask questions and all questions answered. Thank you for allowing me to participate in her care Orders: Orders Transglutaminase IgA Today R10.9 - Unspecified abdominal pain Lipase Today R10.9 - Unspecified abdominal pain Pancreatic Elastase-1 Today R10.9 - Unspecified abdominal pain Transglutaminase Ab IgG Today R10.9 - Unspecified abdominal pain Vitamin B12 and Folate Today R19.7 - Diarrhea, unspecified Vitamin D 25-OH (D2 and D3) Today E55.9 - Vitamin D deficiency, unspecified Rast Allergen Today K21.9 - Gastro-esophageal reflux disease without esophagitis Medications: New sennosides (Natural Senna Laxative) 17.2 mg (2 x 8.6 mg) PO BEDTIME 60 tabs 1RF constipation K59.00 - Constipation, unspecified Coding Level of Care Code New Pt Level 4 (45152) Diagnoses Abdominal bloating R14.0 Heartburn R12 Epigastric pain R10.13 Abdominal location: epigastric Dairy product intolerance K90.49 Postprandial epigastric pain R10.13 Postprandial abdominal bloating R14.0 Time Spent (min) 45 Comment 30 minutes spent with patient and additional 15 minutes spent reviewing her records
[2024-02-29 08:57] VITALS: BP 126/74; PULSE 84; O2SAT 98; BMI 32.8
== END 2024-02-29 09:25 | disposition home or self-care (01) ==
PROVIDERS: PCP Family Medicine; Visit Provider Nurse Practitioner Family
DX: R14.0 Abdominal distension (gaseous) (principal); R12 Heartburn; K90.49 Malabsorption due to intolerance, not elsewhere classified
CPT/HCPCS: 99204

== ENCOUNTER → 2024-02-29 08:31 | Outpatient (BNVA) | payer OTHER, SELFPAY | PROVIDERS: PCP Family Medicine; Visit Provider Nurse Practitioner Family | DX: R14.0 Abdominal distension (gaseous) (principal); R10.13 Epigastric pain; K90.49 Malabsorption due to intolerance, not elsewhere classified; R63.5 Abnormal weight gain; Z90.49 Acquired absence of other specified parts of digestive tract | CPT/HCPCS: 99202 ==

== ENCOUNTER 2024-03-23 07:35 | Outpatient (REF) | payer OTHER, SELFPAY ==
[2024-03-23 12:01] LABS: Lipase 45 U/L (8-78)
[2024-03-23 12:28] LABS: Folate 7.5 ng/mL (> or = 4.0); Vitamin B12 356 pg/mL (200-900)
[2024-03-27 15:19] LABS: Transglutaminase Ab IgG <1.0 U/mL; Transglutaminase IgA <1.0 U/mL
[2024-03-29 14:58] LABS: Vitamin D 25-OH, D2 <4 ng/mL; Vitamin D 25-OH, D3 47 ng/mL; Vitamin D 25-OH, Total 47 ng/mL (30-100)
== END 2024-03-23 07:36 | disposition home or self-care (01) ==
LOC: HO.WFDLDS 07:35
PROVIDERS: Visit Provider Nurse Practitioner Family
DX: R10.9 Unspecified abdominal pain (principal); R19.7 Diarrhea, unspecified; E55.9 Vitamin D deficiency, unspecified; K21.9 Gastro-esophageal reflux disease without esophagitis
CPT/HCPCS: 36415; 82306; 82607; 82746; 83690; 86003; 86364

== ENCOUNTER 2024-04-04 15:35 | Outpatient (AMB) | payer OTHER, SELFPAY ==
--- NOTE | 2024-04-04 15:42 | MHC.PC.OV ---
Vital Signs 04/04/24 15:44 Height 5 ft 4 in Weight 192 lb 3 oz BMI 33.0 BP 124/80 Blood Pressure Location Rt brachial Position Sitting Respiration 14 Pulse 100 Pulse Source Pulse Oximeter Pulse Oximetry (%) 99 Oxygen Delivery Method Room Air Intake Visit Reasons: f/u diabetes, hypertension Intake Note: Patient states that arturo has been on donald order and would like a n alternative. Door Tender Required: No Accompanied by: Self / Same As Patient Allergies adhesive Allergy (Verified 04/04/24 15:52) swollen, rash latex Allergy (Verified 04/04/24 15:52) rash Medication List - Last Reconciled 04/04/24 by Vipin Medrano MD albuterol sulfate 90 mcg/actuation (ProAir HFA) 2 puffs inhalation Q4-6H PRN 30 days cholecalciferol (vitamin D3) 50 mcg PO DAILY empagliflozin (Jardiance) 10 mg PO QAM 30 days fluticasone propion-salmeterol 100-50 mcg/dose 1 inh inhalation Q12H 30 days fluticasone propion-salmeterol 100-50 mcg/dose (Wixela Inhub) 1 inh inhalation Q12H 30 days omeprazole 20 mg PO DAILY 30 days sennosides (Natural Senna Laxative) 17.2 mg PO BEDTIME PRN Tobacco use date assessed: 09/29/23 Dental Screening Dental Screen Date: 11/22/23 HPI f/u diabetes, hypertension HPI Details 38 y/o female presents to f/u diabetes, hypertension. Had started her on Ozempic. A1c today 04/04/24 6.2%. Blood pressure today 124/80. She is no longer on medication for her hypertension. 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 Keagan Martinez, Cecilia Reynaga, Dre Do and colleagues, with an educational rashaun from [employer]. Review of Systems Const Denies chills, Denies fatigue, Denies fever(s), Denies headache(s) and Denies weakness ENT Denies dizziness and Denies headache(s) Card Denies dyspnea Resp Denies cough, Denies dyspnea, Denies wheezing and Denies other (shortness of breath) Musc Denies numbness and Denies tingling Neuro Denies dizziness, Denies headache(s), Denies numbness, Denies tingling and Denies weakness Psych Denies anxiety and Denies depression Endo Denies fatigue Aller/Immun Denies wheezing Physical exam (Primary Care) Vital Signs: Last Vital Signs Pulse 100 04/04/24 15:44 Resp 14 04/04/24 15:44 BP 124/80 04/04/24 15:44 Pulse Ox 99 04/04/24 15:44 Oxygen Delivery Method Room Air 04/04/24 15:44 BMI result Body Mass Index 33.0 Tobacco/Smoking Status: Tobacco use Status Tobacco use date assessed 09/29/23 04/04/24 15:43 Patient Tobacco Use Status Never used Tobacco 04/04/24 15:43 e-Cigarette/Vaping Use Never Used 04/04/24 15:43 Thrive Assessment: Date of Thrive Assessment Date Thrive assessed 01/02/24 04/04/24 15:43 Const General: well developed; No acute distress Nutritional Appearance: well nourished Orientation/consciousness: patient oriented x3 HENMT Head: Yes normocephalic and Yes atraumatic Eyes General: appearance normal, both eyes and all related structures Pupils: Equal, round and reactive pupils present EOM: EOMs intact bilaterally Resp Effort & Inspection: normal respiratory effort Auscultation: clear to auscultation bilaterally Cardio Rate: regular rate Rhythm: regular rhythm Heart sounds: S1 normal heart sound present, S2 normal heart sound present, no gallops, no murmurs and no rubs Neuro General: patient oriented x3 and gait normal Cranial nerves: Yes Equal, round and reactive pupils present Psych Affect: normal affect Results AMB Hemoglobin A1c AMB Hemoglobin A1c 6.2 % Last Edit by DEBBIE Apple on 04/04/24 16:23 Results Reviewed Results Reviewed: Laboratory Last Values Hgb A1c (Clinic) 6.2 % (4.0-6.0) H 04/04/24 16:21 Assessment and Plan Assessment & Plan (1) Hypertension: Code(s): I10 - Essential (primary) hypertension Plan: Blood?pressure?is?controlled.??She?has?no?longer?on?medication Continue?weight?loss?and?diet?control. (2) Diabetes: Code(s): E11.9 - Type 2 diabetes mellitus without complications Plan: A1c?6.2%.??Good?control.??Goal?is?less?than?7.0% No?changes?made?today (3) Asthma: Code(s): J45.909 - Unspecified asthma, uncomplicated Plan: Patient?was?unable?to?get?Advair?at?her?usual?pharmacy.??Tried?sending?Wixela?and?this?was?going?to?cost?her?60?dollars Sent?Advair?to?[facility]. Orders: Orders AMB Hemoglobin A1c Today Vipin Medrano MD Z13.9 - Encounter for screening, unspecified Medications: New fluticasone propion-salmeterol 100-50 mcg/dose (Wixela Inhub) 1 inh inhalation Q12H 30 days 60 ea 1RF Vipin Medrano MD Changed From sennosides (Natural Senna Laxative) 17.2 mg (2 x 8.6 mg) PO BEDTIME 60 tabs 1RF constipation K59.00 - Constipation, unspecified To sennosides (Natural Senna Laxative) 17.2 mg PO BEDTIME PRN constipation K59.00 - Constipation, unspecified Elvira Curtis, SHEARING MACHINE OPERATOR-BC Refilled fluticasone propion-salmeterol 100-50 mcg/dose 1 inh inhalation Q12H 30 days 60 ea 3RF Vipin Medrano MD R73.03 - Prediabetes Coding Level of Care Code Est Pt Level 4 (97365) Diagnoses Hypertension I10 Diabetes E11.9 Asthma J45.909
[2024-04-04 15:44] VITALS: BP 124/80; PULSE 100; RESP 14; O2SAT 99; BMI 33.0
== END 2024-04-04 16:56 | disposition home or self-care (01) ==
PROVIDERS: PCP Family Medicine; Visit Provider Family Medicine
DX: I10 Essential (primary) hypertension (principal); E11.9 Type 2 diabetes mellitus without complications; J45.909 Unspecified asthma, uncomplicated
CPT/HCPCS: 83036; 99214

== ENCOUNTER 2024-04-16 12:39 | Outpatient (AMB) | payer OTHER, SELFPAY ==
[2024-04-16 12:57] VITALS: BP 119/65; BMI 33.2
--- NOTE | 2024-04-16 12:57 | MHC.OFFVIS ---
Vital Signs 04/16/24 12:57 Height 5 ft 4 in Weight 193 lb 9.054 oz BMI 33.2 BP 119/65 Blood Pressure Location Lt brachial Position Sitting Intake Visit Reasons: 5 Weeks Abd Pain Intake Note: Trice returns to in office follow up of abdominal pain and labs. CC: Patient states that she was taking the sennoside for 2 weeks and was going to the bathroom all the time. She is now taking it PRN. Still Operator Helper Required: No Accompanied by: Self / Same As Patient Allergies adhesive Allergy (Verified 04/16/24 12:57) swollen, rash latex Allergy (Verified 04/16/24 12:57) rash HPI HPI 5 Weeks Abd Pain: Details: LAST VISIT Abdominal bloating Heartburn Abdominal pain Dairy product intolerance Postprandial epigastric pain Postprandial abdominal bloating Plan Will rule out celiac, pancreatitis, pancreatic insufficiency. Will check vitamin B12, folate vitamin-D level. Patient was taking senna to help her evacuate her bowels better. Patient currently is moving her bowels, however feels like she has not emptying them completely. Discussed with patient low FODMAP diet. List of food recommended as well as list of food to avoid given to patient. Patient will return to the office in 5-6 weeks, sooner on as needed basis. She is agreeable to this plan and verbalizes understanding of instructions. She was given the opportunity to ask questions and all questions answered. ? Thank you for allowing me to participate in her care Orders Orders Transglutaminase IgA Today R10.9 Lipase Today R10.9 Pancreatic Elastase-1 Today R10.9 Transglutaminase Ab IgG Today R10.9 Vitamin B12 and Folate Today R19.7 Vitamin D 25-OH (D2 and D3) Today E55.9 Rast Allergen Today K21.9 Medications New sennosides (Natural Senna Laxative) 17.2 mg (2 x 8.6 mg) PO BEDTIME 60 tabs 1RF constipation K59.00 TODAY'S VISIT Patient is here today for follow-up and to discuss lab results. Multiple sensitivities to different food, discussed with patient. Patient will speak to her PCP maybe will go to see an chief supply chain officer. Patient reports that she has been feeling little better. She continues to avoid dietary triggers. Has not drank any alcohol. We did rule out celiac disease. Patient's lab work otherwise normal occasional postprandial loose stools, however patient knows that she is status post cholecystectomy and when she eats anything that is fried or high in fat she will have loose stools. Patient reports that she change her diet and is doing better now. Patient denies any melena, hematochezia. Reports that omeprazole has been working for her. Patient states that she only uses Senokot on as needed basis. Reports that she is moving her bowels better now. Patient did increase fiber in her diet. Drinking more fluids. [facility] Medical History Diabetes Gastrointestinal complaint Asthma Surgical History H/O endoscopy History of cholecystectomy History of Family History Father Hypertension Mother Hypertension Kidney stones Hernia, hiatal Esophageal dilatation Brother Substance abuse Other Crohn's disease involving stomach Social History Household Members: Children Housing: Apartment Alcohol intake: current Alcohol intake frequency: a few times a week Patient Tobacco Use Status: Never used Tobacco e-Cigarette/Vaping Use: Never Used service: No Current occupational status: employed 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[employer] Sexual 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/Heterosexual Gender identity: Female Cognitive needs: No Hearing needs: No Vision needs: No (Patient has prescription) Female Reproductive History Menstrual Age of Menarche: 19 Review of Systems Const Denies weight gain and Denies weight loss ENT Reports no additional complaints, Denies dysphagia and Denies odynophagia Card Reports no additional complaints Resp Reports no additional complaints GI Reports abdominal pain (upper abdomen), Denies belching, Denies melena, Reports bloating, Denies change in bowel habits, Reports constipation, Denies dysphagia, Denies excessive flatus, Reports dyspepsia, Reports heartburn, Denies diarrhea, Denies loose stools, Denies nausea, Denies odynophagia and Denies vomiting Reports no additional complaints Musc Reports no additional complaints Neuro Reports no additional complaints Psych Reports no additional complaints Endo Reports no additional complaints Physical Exam Vital Signs: Last Vital Signs BP 119/65 04/16/24 12:57 BMI result Body Mass Index 33.2 Const General: healthy appearing and no acute distress Nutritional Appearance: obese Orientation/consciousness: patient oriented x3 Resp Effort & Inspection: normal respiratory effort, able to speak in complete sentences, no tracheal deviation and symmetric chest movement Auscultation: clear to auscultation bilaterally Cardio Rate: regular rate GI Inspection: Yes normal to inspection, No distended and Yes obesity Palpation (GI): Soft to palpation, not firm, nontender and No hepatosplenomegaly present Auscultation: normal bowel sounds General: Yes no CVA tenderness Back/Spine/Pelvis Back: no CVA tenderness Skin General skin exam: elasticity normal, turgor normal and dry skin Neuro General: patient oriented x3 Psych Appearance: grossly normal Mental Status: mental status grossly normal Results Reviewed Results Reviewed: Laboratory Tests 03/23/24 04/04/24 07:38 16:21 Hgb A1c (Clinic) 6.2 H Lipase 45 Vitamin B12 356 25-OH Vitamin D Total 47 Folate 7.5 Tiss Transglutamin IgG <1.0 Tiss Transglutamin IgA <1.0 Assessment & Plan Assessment & Plan (1) Abdominal bloating: Code(s): R14.0 - Abdominal distension (gaseous) Category: Medical (2) Heartburn: Code(s): R12 - Heartburn Category: Medical (3) Abdominal pain: Code(s): R10.9 - Unspecified abdominal pain Category: Medical Qualifiers: Abdominal location: epigastric Qualified Code(s): R10.13 - Epigastric pain (4) Dairy product intolerance: Code(s): K90.49 - Malabsorption due to intolerance, not elsewhere classified Category: Medical (5) Postprandial epigastric pain: Code(s): R10.13 - Epigastric pain (6) Postprandial abdominal bloating: Code(s): R14.0 - Abdominal distension (gaseous) Plan Continue omeprazole daily. Avoid dietary triggers and late night snacking. Staying upright for minimum 3 hours after meals discussed with patient. Patient can continue taking Senokot when no BM in 2-3 days. Follow-up in the office in 3 months, sooner on as needed basis. Patient is agreeable to current plan of care and verbalizes understanding of instructions. She was given the opportunity to ask questions and all questions answered. Thank you for allowing me to participate in her care Medications: Refilled omeprazole 20 mg PO DAILY 30 days 30 caps 1RF Coding Level of Care Code Est Pt Level 3 (98221) Diagnoses Abdominal bloating R14.0 Heartburn R12 Epigastric pain R10.13 Abdominal location: epigastric Dairy product intolerance K90.49 Postprandial epigastric pain R10.13 Postprandial abdominal bloating R14.0 Time Spent (min) 30 Comment 20 minutes spent with patient and additional 10 minutes spent reviewing her records
== END 2024-04-16 13:22 | disposition home or self-care (01) ==
PROVIDERS: PCP Family Medicine; Visit Provider Nurse Practitioner Family
DX: R14.0 Abdominal distension (gaseous) (principal); R12 Heartburn; K90.49 Malabsorption due to intolerance, not elsewhere classified
CPT/HCPCS: 99213

== ENCOUNTER → 2024-04-16 12:39 | Outpatient (BNVA) | payer OTHER, SELFPAY | PROVIDERS: PCP Family Medicine; Visit Provider Nurse Practitioner Family | DX: R14.0 Abdominal distension (gaseous) (principal); R12 Heartburn; R10.13 Epigastric pain; K90.49 Malabsorption due to intolerance, not elsewhere classified | CPT/HCPCS: 99212 ==

== ENCOUNTER 2024-06-26 15:22 | Outpatient (AMB) | payer OTHER, SELFPAY ==
--- NOTE | 2024-06-26 15:49 | A.OFFPC_ITS ---
Vital Signs 06/26/24 15:53 Height 5 ft 4 in Weight 190 lb BMI 32.6 BP 118/68 Blood Pressure Location Rt brachial Position Sitting Respiration 14 Pulse 88 Pulse Source Pulse Oximeter Temp 98.4 F Temp Source Oral Pulse Oximetry (%) 98 Oxygen Delivery Method Room Air Intake Visit Reasons: 3 months f/u Intake Note: 3 months follow up and patient is wondering about her referral to go get a allergy test. Allergies adhesive Allergy (Verified 06/26/24 15:51) swollen, rash latex Allergy (Verified 06/26/24 15:51) rash Medication List - Last Reconciled 06/26/24 by Vipin Medrano MD albuterol sulfate 90 mcg/actuation 2 puffs inhalation Q4-6H PRN 30 days cholecalciferol (vitamin D3) 50 mcg PO DAILY empagliflozin (Jardiance) 10 mg PO QAM 30 days fluticasone propion-salmeterol 100-50 mcg/dose (Wixela Inhub) 1 inh inhalation Q12H 30 days fluticasone propion-salmeterol 100-50 mcg/dose 1 inh inhalation Q12H 30 days levocetirizine 5 mg PO DAILY omeprazole 20 mg PO DAILY 30 days [plant based D3+ K2 125 mcg- 100mg] sennosides (Natural Senna Laxative) 17.2 mg PO BEDTIME PRN Tobacco use date assessed: 09/29/23 Dental Screening Dental Screen Date: 11/22/23 HPI 3 months f/u HPI Details 39 y/o female presents to f/u diabetes, hypertension. Last A1c 04/04/24 6.2%. She is on Jardiance 10mg. She notes her diet could be better. Blood pressure today 118/68, 88p. She requests allergy testing. HPI Comments History of Present Illness Details Documentation assistance for Vipin Medrano MD, was provided by Ishan eMraz, [employer] Outside Sales Representative on 06/26/2024 at 4:38 PM EST. I, Dr. Medrano, have read, observed, and verified documentation. [facility] Medical History Diabetes Gastrointestinal complaint Asthma Surgical History H/O endoscopy History of cholecystectomy History of Family History Father Hypertension Mother Hypertension Kidney stones Hernia, hiatal Esophageal dilatation Brother Substance abuse Other Crohn's disease involving stomach Social History Household Members: Children Housing: Apartment Alcohol intake: current Alcohol intake frequency: a few times a week Patient Tobacco Use Status: Never used Tobacco e-Cigarette/Vaping Use: Never Used service: No Current occupational status: employed 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 1. Little interest or pleasure in doing things: not at all 2. Feeling down, depressed, or hopeless: not at all 3. Trouble falling or staying asleep, or sleeping too much: more than half the days 4. Feeling tired or having little energy: not at all 5. Poor appetite or overeating: not at all 6. Feeling bad about yourself - or that you are a failure or have let yourself or your family down: not at all 7. Trouble concentrating on things, such as reading the newspaper or watching television: not at all 8. Moving or speaking so slowly that other people could have noticed. Or the opposite - being so fidgety or restless that you have been moving around a lot more than usual: not at all 9. Thoughts that you would be better off or of hurting yourself in some way: not at all Total score: 2 77469 - PHQ-9 Billing: Yes Source: Developed by Drs. Keagan Martinez, Cecilia Reynaga, Dre Do and colleagues, with an educational rashaun from [employer]. Thrive Questionnaire Date Thrive assessed: 01/02/24 BRANDY-7 AMB Questionnaire BRANDY-7 Date BRANDY - 7 assessed: 06/26/24 Feeling nervous, anxious, or on edge: 0 = Not at all Not being able to stop or control worryin = Not at all Worrying too much about different things: 0 = Not at all Trouble relaxin = Not at all Being so restless that it is hard to sit still: 0 = Not at all Becoming easily annoyed or irritable: 0 = Not at all Feeling afraid as if something awful might happen: 0 = Not at all Total BRANDY-7 score (0-4 normal; 5-9 mild; 10-14 moderate; 15-21 severe): 0 Source: Developed by Drs. Keagan Martinez, Cecilia Reynaga, Dre Do and colleagues, with an educational rashaun from [employer]. BRANDY-7 Assessment Billing BRANDY-7 Assessment Tool: BRANDY-7 Assessment 28111 Review of Systems Const Denies chills, Denies fatigue, Denies fever(s), Denies headache(s) and Denies weakness ENT Denies dizziness and Denies headache(s) Card Denies dyspnea Resp Denies cough, Denies dyspnea, Denies wheezing and Denies other (shortness of breath) Musc Denies numbness and Denies tingling Neuro Denies dizziness, Denies headache(s), Denies numbness, Denies tingling and Denies weakness Psych Denies anxiety and Denies depression Endo Denies fatigue Aller/Immun Denies wheezing Physical exam (Primary Care) Vital Signs: Last Vital Signs Temp 98.4 F 06/26/24 15:53 Pulse 88 06/26/24 15:53 Resp 14 06/26/24 15:53 BP 118/68 06/26/24 15:53 Pulse Ox 98 06/26/24 15:53 Oxygen Delivery Method Room Air 06/26/24 15:53 BMI result Body Mass Index 32.6 Tobacco/Smoking Status: Tobacco use Status Tobacco use date assessed 09/29/23 06/26/24 15:55 Patient Tobacco Use Status Never used Tobacco 06/26/24 15:55 e-Cigarette/Vaping Use Never Used 06/26/24 15:55 PHQ-9: PHQ-9 Score PHQ-9: Total score 2 06/26/24 15:57 Thrive Assessment: Date of Thrive Assessment Date Thrive assessed 01/02/24 06/26/24 15:55 Const General: well developed; No acute distress Nutritional Appearance: well nourished Orientation/consciousness: patient oriented x3 [facility] Head: Yes normocephalic and Yes atraumatic Eyes General: appearance normal, both eyes and all related structures Pupils: Equal, round and reactive pupils present EOM: EOMs intact bilaterally Resp Effort & Inspection: normal respiratory effort Neuro General: patient oriented x3 and gait normal Cranial nerves: Yes Equal, round and reactive pupils present Psych Affect: normal affect Coding Level of Care Code Est Pt Level 4 (89526) Diagnoses Diabetes E11.9 Hypertension I10 Allergies T78.40XA Additional Codes BRANDY-7 Assessment Billing - BRANDY-7 Assessment Tool: BRANDY-7 Assessment 05547 ([id number]) Assessment & Plan Assessment & Plan (1) Diabetes: Code(s): E11.9 - Type 2 diabetes mellitus without complications Category: Medical Plan: A1c?was?checked?less?than?3?months?ago?and?showed?good?control?at?6.2%.??Goal?is ?less?than?7.0% She?says?that?she?has?been?moving?lately?and?her?dietary?choices?have?not?been?a s?good?lately Will?have?her?recheck?A1c?by?labs?and?we?can?follow- up?by?telemedicine?in?a?month (2) Hypertension: Code(s): I10 - Essential (primary) hypertension Category: Medical Plan: Has?been?working?at?weight?loss Blood?pressure?is?normal?and?stable?off?medication. Continue?working?at?weight (3) Allergies: Code(s): T78.40XA - Allergy, unspecified, initial encounter Category: Medical Plan: Patient?has?multiple?environmental?allergy Referred?to?immunology Orders: Orders Hemoglobin A1c Today R73.01 - Impaired fasting glucose Basic Metabolic Panel Fasting Today E11.9 - Type 2 diabetes mellitus without complications Referrals Allergy & Immunology Referral T78.40XA - Allergy, unspecified, initial encounter Medications: Refilled empagliflozin (Jardiance) 10 mg PO QAM 30 days 30 tabs 2RF
[2024-06-26 15:53] VITALS: BP 118/68; PULSE 88; RESP 14; TEMP 36.9; O2SAT 98; BMI 32.6
== END 2024-06-26 16:47 | disposition home or self-care (01) ==
PROVIDERS: PCP Family Medicine; Visit Provider Family Medicine
DX: E11.9 Type 2 diabetes mellitus without complications (principal); I10 Essential (primary) hypertension; T78.40XA Allergy, unspecified, initial encounter

== ENCOUNTER → 2024-06-26 15:22 | Outpatient (BNVA) | payer OTHER, SELFPAY | PROVIDERS: PCP Family Medicine; Visit Provider Family Medicine | DX: E11.9 Type 2 diabetes mellitus without complications (principal); I10 Essential (primary) hypertension; T78.40XA Allergy, unspecified, initial encounter; Z79.85 Long-term (current) use of injectable non-insulin antidiabetic drugs | CPT/HCPCS: 96127; 99212 ==

== ENCOUNTER 2024-07-17 15:58 | Outpatient (AMB) | payer OTHER, SELFPAY ==
[2024-07-17 16:03] VITALS: BP 124/62; PULSE 80; O2SAT 98; BMI 32.1
--- NOTE | 2024-07-17 16:03 | MHC.OFFVIS ---
Vital Signs 07/17/24 16:03 Height 5 ft 4 in Weight 186 lb 15.232 oz BMI 32.1 BP 124/62 Blood Pressure Location Lt brachial Position Sitting Pulse 80 Pulse Source Pulse Oximeter Pulse Oximetry (%) 98 Oxygen Delivery Method Room Air Intake Visit Reasons: 3 month follow up Intake Note: Relevant Flags or Indicators ? Requires Line Department Supervisor? Eileen Carnes presents in office today for a scheduled 3 mos FUV to discuss sx managment CC; Since last visit; labs ordered ? none. Rx ordered ? no. Diagnostics/images ordered ? none. Relevant GI Sx as reported per pt? Reflux ? Hx of any recent surgeries? None Line Department Supervisor Required: No Allergies adhesive Allergy (Verified 07/17/24 16:07) swollen, rash latex Allergy (Verified 07/17/24 16:07) rash HPI HPI 3 month follow up: Details: LAST VISIT Abdominal bloating Heartburn Abdominal pain Dairy product intolerance Postprandial epigastric pain Postprandial abdominal bloating Plan Continue omeprazole daily. Avoid dietary triggers and late night snacking. Staying upright for minimum 3 hours after meals discussed with patient. Patient can continue taking Senokot when no BM in 2-3 days. Follow-up in the office in 3 months, sooner on as needed basis. Patient is agreeable to current plan of care and verbalizes understanding of instructions. She was given the opportunity to ask questions and all questions answered. TODAY'S VISIT Patient is here today for follow-up. Patient reports that she has been doing well since last visit. Her acid reflux is controlled with omeprazole. She also is avoiding dietary triggers. Trying to lose weight. Currently patient lost 11 lb since last visit. Patient denies dyspepsia, dysphagia or odynophagia. Denies any abdominal pain or discomfort. Denies any abdominal bloating. Patient reports that she is moving her bowels better now. Only uses Senokot on as needed basis. Patient denies melena, hematochezia, unintentional weight loss or ribbon like stools. ? 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[employer] Sexual 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/Heterosexual Gender identity: Female Cognitive needs: No Hearing needs: No Vision needs: No (Patient has prescription) Female Reproductive History Menstrual Age of Menarche: 19 Review of Systems Const Denies weight gain and Denies weight loss ENT Reports no additional complaints, Denies dysphagia and Denies odynophagia Card Reports no additional complaints Resp Reports no additional complaints GI Denies abdominal pain, Denies belching, Denies melena, Denies bloating, Denies change in bowel habits, Denies dysphagia, Denies excessive flatus, Denies dyspepsia, Denies heartburn, Denies diarrhea, Denies loose stools, Denies nausea, Denies odynophagia and Denies vomiting Musc Reports no additional complaints Neuro Reports no additional complaints Psych Reports no additional complaints Endo Reports no additional complaints Physical Exam Vital Signs: BMI result Body Mass Index 32.1 Const General: healthy appearing and no acute distress Nutritional Appearance: obese Orientation/consciousness: patient oriented x3 Resp Effort & Inspection: normal respiratory effort, able to speak in complete sentences, no tracheal deviation and symmetric chest movement Auscultation: clear to auscultation bilaterally Cardio Rate: regular rate GI Inspection: Yes normal to inspection, No distended and Yes obesity Palpation (GI): Soft to palpation, not firm, nontender and No hepatosplenomegaly present Auscultation: normal bowel sounds General: Yes no CVA tenderness Back/Spine/Pelvis Back: no CVA tenderness Skin General skin exam: elasticity normal, turgor normal and dry skin Neuro General: patient oriented x3 Psych Appearance: grossly normal Mental Status: mental status grossly normal Assessment & Plan Assessment & Plan (1) Abdominal bloating: Code(s): R14.0 - Abdominal distension (gaseous) Category: Medical (2) Heartburn: Code(s): R12 - Heartburn Category: Medical (3) Abdominal pain: Code(s): R10.9 - Unspecified abdominal pain Category: Medical Qualifiers: Abdominal location: epigastric Qualified Code(s): R10.13 - Epigastric pain (4) Dairy product intolerance: Code(s): K90.49 - Malabsorption due to intolerance, not elsewhere classified Category: Medical (5) Postprandial epigastric pain: Code(s): R10.13 - Epigastric pain (6) Postprandial abdominal bloating: Code(s): R14.0 - Abdominal distension (gaseous) Plan Continue omeprazole. Patient was encouraged to avoid dietary triggers and late night snacking. Staying upright for minimum 3 hours after meals discussed with patient. Patient can continue senna on as-needed basis. Increase fluid intake and activity to promote better bowel motility. Follow-up on as needed basis. Patient is agreeable to this plan and verbalizes understanding of instructions. She was given the opportunity to ask questions and all questions answered. Thank you for allowing me to participate in her care Coding Level of Care Code Est Pt Level 3 (45879) Diagnoses Abdominal bloating R14.0 Heartburn R12 Epigastric pain R10.13 Abdominal location: epigastric Dairy product intolerance K90.49 Postprandial epigastric pain R10.13 Postprandial abdominal bloating R14.0 Time Spent (min) 25 Comment 15 minutes spent with patient and additional 10 minutes spent reviewing her records
== END 2024-07-17 16:19 | disposition home or self-care (01) ==
PROVIDERS: PCP Family Medicine; Visit Provider Nurse Practitioner Family
DX: R12 Heartburn (principal); K90.49 Malabsorption due to intolerance, not elsewhere classified
CPT/HCPCS: 99213

== ENCOUNTER → 2024-07-17 15:58 | Outpatient (BNVA) | payer OTHER, SELFPAY | PROVIDERS: PCP Family Medicine; Visit Provider Nurse Practitioner Family | DX: R14.0 Abdominal distension (gaseous) (principal); R12 Heartburn; K90.49 Malabsorption due to intolerance, not elsewhere classified | CPT/HCPCS: 99212 ==

== ENCOUNTER 2025-04-30 07:41 | Outpatient (REF) | payer OTHER, SELFPAY ==
--- OUTSIDE RECORDS SUMMARY | 2025-04-30 07:44 | XMS_ITS | Clinical Summary ---
Author Organization [facility] it[facility] Address [address] [place] [address] Care Team Providers Care Compensation Vice President Name Role Phone Unavailable Primary Care Provider Unavailabl e Social History Tobacco Use Types Packs/Day Years Used Date Smoking Tobacco: Never Assessed Comments Unknown Sex and Gender Information Value Date Recorded Sex Assigned at Not on file Legal Sex Female 2:29 PM EDT Gender Identity Not on file Sexual Orientation Not on file Plan of Treatment Health Maintenance Due Date Last Done Comments DTaP,Tdap,and Td Vaccines (1 - Tdap) 2006 Hepatitis B Vaccines (1 of 3 - 19+ 3-dose series) 2006 Cervical Cancer Screening: P ap Smear 2008 COVID-19 Vaccine ( - 2023-2 5 season) 2024 Depression Screening 09/26/2024 Influenza Vaccine (#1) 2025 HIB Vaccines Aged Out No longer eligi ble based on patient's age to complete this topic HPV Vaccines Aged Out No longer eligi ble based on patient's age to complete this topic Hepatitis A Vaccines Aged Out No long er eligible based on patient's age to complete this topic IPV Vaccines Aged Out No longer eligi ble based on patient's age to complete this topic MMR Vaccines Aged Out No longer eligi ble based on patient's age to complete this topic Meningococcal ACWY Vaccine Aged Out N o longer eligible based on patient's age to complete this topic Meningococcal B Vaccine Aged Out No l onger eligible based on patient's age to complete this topic Pneumococcal Vaccine: Pediat rics (0 to 5 Years) and At-Risk Patients (6 to 49 Years) Aged Out No longer eligible b ased on patient's age to complete this topic RSV Immunization Patients Un alexia 20 months Aged Out No longer eligible b ased on patient's age to complete this topic Varicella Vaccines Aged Out No longer eligible based on patient's age to complete this topic
[2025-04-30 11:43] LABS: Hemoglobin A1C 155.9979 umol/L; Total Hemoglobin (HGBA1C) 3376.5337 umol/L
[2025-04-30 12:04] LABS: Anion Gap 10 (12-20); Blood Urea Nitrogen 13 mg/dL (9-16); Calcium 9.2 mg/dL (8.4-10.2); Carbon Dioxide 27 mmol/L (22-29); Chloride 107 mmol/L (96-108); Estimated Glomerular Filt Rate > 60; Potassium 3.5 mmol/L (3.3-5.1); Sodium 140 mmol/L (135-145)
== END 2025-04-30 07:42 | disposition home or self-care (01) ==
LOC: HO.WFDLDS 07:41
PROVIDERS: Visit Provider Family Medicine
DX: E11.9 Type 2 diabetes mellitus without complications (principal)
CPT/HCPCS: 36415; 80048; 83036

== ENCOUNTER 2025-06-03 15:21 | Outpatient (AMB) | payer OTHER, SELFPAY ==
--- NOTE | 2025-06-03 15:24 | A.OFFPC_ITS ---
Vital Signs 06/03/25 15:25 Height 5 ft 4 in Weight 200 lb BMI 34.3 BP 124/86 Blood Pressure Location Rt brachial Position Sitting Pulse 90 Pulse Source Pulse Oximeter Pulse Oximetry (%) 99 Oxygen Delivery Method Room Air Intake Visit Reasons: f/u diabetes, hypertension Allergies adhesive Allergy (Verified 06/03/25 15:27) swollen, rash latex Allergy (Verified 06/03/25 15:27) rash Medication List - Last Reconciled 06/03/25 by Vipin Medrano MD albuterol sulfate 90 mcg/actuation 2 puffs inhalation Q4-6H PRN 30 days cholecalciferol (vitamin D3) 50 mcg PO DAILY empagliflozin (Jardiance) 10 mg PO QAM 30 days fluticasone propion-salmeterol 100-50 mcg/dose (Wixela Inhub) 1 inh inhalation Q12H 30 days levocetirizine 5 mg PO DAILY omeprazole 20 mg PO DAILY [plant based D3+ K2 125 mcg- 100mg] Tobacco use date assessed: 06/03/25 Dental Screening Dental Screen Date: 06/03/25 Did you have a dental visit in the last 12 months?: Yes Did you have a dental problem in the last 6 months where you did not have access to dental care?: No Was dental information given to patient?: Patient has dentist HPI f/u diabetes, hypertension HPI Details 40 y/o female presents to f/u diabetes, HTN. A1c 04/30/25 6.4%. She is on Jardiance 10mg. BP today 124/86, 90p. She is not on anything for her blood pressure. Has gained about 14 lbs since last year. [facility] Medical History Cat allergies Diabetes Gastrointestinal complaint Asthma Surgical History H/O endoscopy History of cholecystectomy History of Family History Father Hypertension Mother Hypertension Kidney stones Hernia, hiatal Esophageal dilatation Brother Substance abuse Other Crohn's disease involving stomach Social History Household Members: Children Housing: Apartment Alcohol intake: current Alcohol intake frequency: a few times a week Patient Tobacco Use Status: Never used Tobacco e-Cigarette/Vaping Use: Never Used service: No Current occupational status: employed 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 1. Little interest or pleasure in doing things: not at all 2. Feeling down, depressed, or hopeless: not at all 3. Trouble falling or staying asleep, or sleeping too much: more than half the days 4. Feeling tired or having little energy: not at all 5. Poor appetite or overeating: not at all 6. Feeling bad about yourself - or that you are a failure or have let yourself or your family down: not at all 7. Trouble concentrating on things, such as reading the newspaper or watching television: not at all 8. Moving or speaking so slowly that other people could have noticed. Or the opposite - being so fidgety or restless that you have been moving around a lot more than usual: not at all 9. Thoughts that you would be better off or of hurting yourself in some way: not at all Total score: 2 Source: Developed by Drs. Keagan Martinez, Cecilia Reynaga, Dre Do and colleagues, with an educational rashaun from [employer] Thrive Questionnaire Date Thrive assessed: 05/31/25 I am a: Patient What is your living situation today?: I have a steady place to live Within the past 12 months, did the food you bought not last and you didn't have the money to get more?: Never true Within the past 12 months, did you worry whether your food would run out before you got money to buy more?: Never true Do you have trouble paying for medicines?: No Do you have trouble getting transportation to medical appointments?: No Do you have trouble paying your heating and electricity bill?: No Do you have trouble taking care of your child, family member or friend?: No Do you have trouble with day-to-day activities such as bathing, preparing meals, shopping, managing finances, etc.?: No Are you currently unemployed and looking for a job?: No Are you interested in more education?: No Please select the resources that you would like help with: None Currently or been in a relationship where the following occur: No concerns reported THRIVE Score: 0 AUDIT C Alcohol Use Questionnaire (AUDIT-C) 1. How often do you have a drink containing alcohol?: Never 3. How often do you have six or more drinks on one occasion?: Never Total Score: 0 BRANDY-7 AMB Questionnaire BRANDY-7 Date BRANDY - 7 assessed: 06/03/25 Feeling nervous, anxious, or on edge: 0 = Not at all Not being able to stop or control worryin = Not at all Worrying too much about different things: 0 = Not at all Trouble relaxin = Not at all Being so restless that it is hard to sit still: 0 = Not at all Becoming easily annoyed or irritable: 1 = Several days Feeling afraid as if something awful might happen: 0 = Not at all Total BRANDY-7 score (0-4 normal; 5-9 mild; 10-14 moderate; 15-21 severe): 1 Source: Developed by Drs. Keagan Martinez, Cecilia Reynaga, Dre Do and colleagues, with an educational rashaun from [employer] Review of Systems Const Denies chills, Denies fatigue, Denies fever(s), Denies headache(s) and Denies weakness ENT Denies dizziness and Denies headache(s) Card Denies dyspnea Resp Denies cough, Denies dyspnea, Denies wheezing and Denies other (shortness of breath) Musc Denies numbness and Denies tingling Neuro Denies dizziness, Denies headache(s), Denies numbness, Denies tingling and Denies weakness Psych Denies anxiety and Denies depression Endo Denies fatigue Aller/Immun Denies wheezing Physical exam (Primary Care) Vital Signs: Last Vital Signs Pulse 90 06/03/25 15:25 BP 124/86 06/03/25 15:25 Pulse Ox 99 06/03/25 15:25 Oxygen Delivery Method Room Air 06/03/25 15:25 BMI result Body Mass Index 34.3 Tobacco/Smoking Status: Tobacco use Status Tobacco use date assessed 06/03/25 06/03/25 15:29 Patient Tobacco Use Status Never used Tobacco 06/03/25 15:29 e-Cigarette/Vaping Use Never Used 06/03/25 15:29 PHQ-9: PHQ-9 Score PHQ-9: Total score 2 06/03/25 15:40 Thrive Assessment: Date of Thrive Assessment Date Thrive assessed 05/31/25 06/03/25 15:29 Currently or been in a relationship where the following occur: No concerns reported Const General: well developed; No acute distress Nutritional Appearance: well nourished Orientation/consciousness: patient oriented x3 [facility] Head: Yes normocephalic and Yes atraumatic Eyes General: appearance normal, both eyes and all related structures Pupils: Equal, round and reactive pupils present EOM: EOMs intact bilaterally Resp Effort & Inspection: normal respiratory effort Neuro General: patient oriented x3 and gait normal Cranial nerves: Yes Equal, round and reactive pupils present Psych Affect: normal affect Coding Level of Care Code Est Pt Level 5 (77069) Diagnoses Diabetes E11.9 Obesity (BMI 30.0-34.9) E66.9 GERD (gastroesophageal reflux disease) K21.9 Heel pain, bilateral M79.671; M79.672 Plantar fasciitis M72.2 Assessment & Plan Assessment & Plan (1) Diabetes: Code(s): E11.9 - Type 2 diabetes mellitus without complications Category: Medical Plan: A1c 6.4% in April Goal is less than 7% Continue Jardiance Encouraged weight loss in diet low in sugars and starches (2) Obesity (BMI 30.0-34.9): Code(s): E66.9 - Obesity, unspecified Category: Medical Plan: Patient has gained about 14 lb since last visit. Encouraged weight loss Patient declines trial of GLP 1 medication (3) GERD (gastroesophageal reflux disease): Code(s): K21.9 - Gastro-esophageal reflux disease without esophagitis Category: Medical Plan: Moderately severe GERD worse at night Encouraged raising head of bed Avoid eating too close to bedtime Do not over filled stomach Continue omeprazole Will give her a short course of famotidine while awaiting referral to gastroenterology - referred (4) Heel pain, bilateral: Code(s): M79.671 - Pain in right foot; M79.672 - Pain in left foot Category: Medical (5) Plantar fasciitis: Code(s): M72.2 - Plantar fascial fibromatosis Category: Medical Plan Likely plantar fasciitis Demonstrated exercises She can also use ice and heat Does not tolerate oral NSAIDs but can try diclofenac gel Referred to Podiatry She will return in a few months to follow-up diabetes and lab work. Orders: Referrals Podiatry Referral M79.671 - Pain in right foot, M79.672 - Pain in left foot Gastroenterology Referral K21.9 - Gastro-esophageal reflux disease without esophagitis Medications: New diclofenac sodium 1% (Arthritis Pain (diclofenac)) apply to single knee, ankle, foot; for foot includes sole/toes/top of foot 4 grams topical BID 200 grams 2RF 30 days famotidine 20 mg PO BEDTIME 30 tabs 2RF 30 days
[2025-06-03 15:25] VITALS: BP 124/86; PULSE 90; O2SAT 99; BMI 34.3
--- OUTSIDE RECORDS SUMMARY | 2025-06-03 18:25 | XMS_ITS | Clinical Summary ---
Author Organization [facility] ity Address [address] [place] [address] Care Team Providers Care Roller Name Role Phone Unavailable Primary Care Provider [...] Cervical Cancer Screening: P ap Smear 2008 Depression Screening 09/26/2024 COVID-19 Vaccine ( - 2023-2 5 season) 2025 Influenza Vaccine (#1) 2025 HIB Vaccines Aged [...]
== END 2025-06-03 15:55 | disposition home or self-care (01) ==
LOC: HO.HMCFM 15:21
PROVIDERS: PCP Family Medicine; Visit Provider Family Medicine
DX: E11.9 Type 2 diabetes mellitus without complications (principal); E66.9 Obesity, unspecified; Z68.34 Body mass index [BMI] 34.0-34.9, adult; K21.9 Gastro-esophageal reflux disease without esophagitis; M79.671 Pain in right foot; M79.672 Pain in left foot; M72.2 Plantar fascial fibromatosis

== ENCOUNTER → 2025-06-03 15:21 | Outpatient (BNVA) | payer OTHER, SELFPAY | PROVIDERS: PCP Family Medicine; Visit Provider Family Medicine | DX: I10 Essential (primary) hypertension (principal); E11.9 Type 2 diabetes mellitus without complications; E66.9 Obesity, unspecified; K21.9 Gastro-esophageal reflux disease without esophagitis; M79.671 Pain in right foot; M79.672 Pain in left foot; M72.2 Plantar fascial fibromatosis; Z68.34 Body mass index [BMI] 34.0-34.9, adult | CPT/HCPCS: 99212 ==

== ENCOUNTER 2025-06-13 10:47 | Outpatient (AMB) | payer OTHER, SELFPAY ==
--- NOTE | 2025-06-13 10:56 | A.OFFVIS_ITS ---
Vital Signs 3 06/13/25 10:57 Height 5 ft 4 in Weight 198 lb BMI 34.0 Intake Visit Reasons: bilateral foot pain Intake Note: Trice is a 40 year old female who presents today as a new patient for an evaluation of her bilateral foot pain. She mentions the pain has been going on for 6 months off and on. Patient reports she believes she may be experiencing athlete foot bilaterally. she notices a bump on the back of both heels. Patient has been doing exercises for her feet in the [facility] and found no relief Allergies adhesive Allergy (Verified 06/13/25 10:58) swollen, rash latex Allergy (Verified 06/13/25 10:58) rash Medication List - Last Reconciled 06/13/25 by Allegra Matta DPM albuterol sulfate 90 mcg/actuation 2 puffs inhalation Q4-6H PRN 30 days cholecalciferol (vitamin D3) 50 mcg PO DAILY diclofenac sodium 1% (Arthritis Pain (diclofenac)) 4 grams topical BID 30 days empagliflozin (Jardiance) 10 mg PO QAM 30 days famotidine 20 mg PO BEDTIME 30 days fluticasone propion-salmeterol 100-50 mcg/dose (Wixela Inhub) 1 inh inhalation Q12H 30 days levocetirizine 5 mg PO DAILY methylprednisolone (Medrol (Bandar)) PO PER PKG DIR omeprazole 20 mg PO DAILY [plant based D3+ K2 125 mcg- 100mg] HPI Comments Details: The patient is a 40-year-old female with a PMH as seen below presenting with B/L heel pain and thickened lesions to the plantar aspects of the feet. The heel pain has been persistent, with the right foot being more affected than the left. The pain is exacerbated by ambulation and activity. She denies any previous imaging to the feet. Patient states she also experiences pain to the dorsum of the 1st metatarsal of the right foot. She denies any inciting injuries. Patient states she tried Tylenol with no relief. She denies any other pedal concerns. Denies any N/V/F/C. Patient states her blood glucose has been well controlled. 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 specified epidermal thickening Pain in both feet Calcaneal spur of both feet Bilateral plantar fasciitis Cat allergies Diabetes Gastrointestinal complaint Asthma Surgical History H/O endoscopy History of cholecystectomy History of Family History Father Hypertension Mother Hypertension Kidney stones Hernia, hiatal Esophageal dilatation Brother Substance abuse Other Crohn's disease involving stomach Social History Household Members: Children Housing: Apartment Alcohol intake: current Alcohol intake frequency: a few times a week Patient Tobacco Use Status: Never used Tobacco e-Cigarette/Vaping Use: Never Used service: No Current occupational status: employed 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 - Dermatological: Reports hyperkeratotic lesion formation to the plantar and posterior aspects of the feet. - Neurological: Denies numbness or tingling in the toes. All systems reviewed & are unremarkable except as noted in HPI and below Physical Exam Vital Signs: BMI result Body Mass Index 34.0 Extrem Other: B/L LE Focused Physical Exam: Derm: Pre-hyperkeratotic lesions noted to the plantar aspect of the right heel and the posterior aspect of the left heel. No open lesions, abrasions, or wounds noted. No clinical signs of infection. No ecchymosis or erythema noted. Skin supple and turgor WNL. Toenails of normal length and color. Vasc: DP/PT pulses palpable. Capillary refill time < 3 secs. Temp gradient warm to warm. No varicosities noted. Pedal hair present. No edema noted. Neuro: Protective sensations grossly intact. MSK: Pain on palpation to the plantar aspects of the heels, worse to the medial calcaneal tubercles, and worse to the right foot. Positive windlass mechanism. ROM of the forefoot, hindfoot, and ankle WNL. No crepitus noted. Ankle/foot/toe images: 2 1. 2. Results Reviewed Results Reviewed: Laboratory Tests 04/30/25 07:43 Hemoglobin A1c % 6.4 H Ordered B/L foot weightbearing xrays to be obtained prior to next visit. Assessment & Plan Assessment & Plan (1) Calcaneal spur of both feet: Code(s): M77.31 - Calcaneal spur, right foot; M77.32 - Calcaneal spur, left foot Category: Medical (2) Bilateral plantar fasciitis: Code(s): M72.2 - Plantar fascial fibromatosis Category: Medical (3) Other specified epidermal thickening: Code(s): L85.8 - Other specified epidermal thickening Category: Medical (4) Pain in both feet: Code(s): M79.671 - Pain in right foot; M79.672 - Pain in left foot Category: Medical (5) Acquired keratosis [keratoderma] palmaris et plantaris: Code(s): L85.1 - Acquired keratosis [keratoderma] palmaris et plantaris Category: Medical Plan Patient was informed and verbally consented to the use of an ambient scribe for clinic note documentation during this visit. I discussed with the patient the diagnosis of plantar fasciitis and the importance of obtaining x-rays to evaluate for osseous conditions. We talked about the use of Medrol Dosepak for managing inflammation and pain, and the potential benefits of a night splint. I advised her on the importance of continuing home exercises and stretching to alleviate symptoms. Regarding the hyperkeratotic lesions to the feet, I explained the need for regular shaving and the application of a thick cream to reduce the rate of recurrence. 1. Plantar Fasciitis - Ordered B/L foot 3 views weightbearing xrays to be performed prior to next visit. - Prescribed Medrol Dosepak for inflammation and pain management. - Advised use of night splint to maintain dorsiflexion during sleep. Provided patient with night splint. - Suggested continuation of home exercises and stretching. Provided patient with plantar fascial exercise instructional form. 2. Callus Formation - Advised regular shaving of callus and application of thick cream to slow recurrence. - Patient denies any pain to the area and denies debridement at this time. - Discussed the high recurrence rate and that the use of an emollient will reduce the rate of recurrence. Patient is to return to the office in 2 weeks for re-evaluation of symptoms. Will consider physical therapy and/or injection if symptoms worsen. Orders: Orders 2 XR Foot Manny 3V Today M72.2 - Plantar fascial fibromatosis, M77.31 - Calcaneal spur, right foot, M77.32 - Calcaneal spur, left foot, M79.671 - Pain in right foot, M79.672 - Pain in left foot Medications: New 2 methylprednisolone (Medrol (Bandar)) PO PER PKG DIR 21 ea 0RF plantar fasciitis L85.8 - Other specified epidermal thickening, M72.2 - Plantar fascial fibromatosis, M77.31 - Calcaneal spur, right foot, M77.32 - Calcaneal spur, left foot, M79.671 - Pain in right foot, M79.672 - Pain in left foot Coding Level of Care Code New Pt Level 4 (98401) Diagnoses Calcaneal spur of both feet M77.31; M77.32 Bilateral plantar fasciitis M72.2 Other specified epidermal thickening L85.8 Pain in both feet M79.671; M79.672 Acquired keratosis [keratoderma] palmaris et plantaris L85.1 Time Spent (min) 50
[2025-06-13 10:57] VITALS: BMI 34.0
--- OUTSIDE RECORDS SUMMARY | 2025-06-13 12:54 | XMS_ITS | Clinical Summary ---
Author Organization [facility] ity Address [address] [place] [address] Care Team Providers Care Tie Presser Name Role Phone Unavailable Primary Care Provider [...]
== END 2025-06-13 11:39 | disposition home or self-care (01) ==
LOC: HO.HPODS 10:48
PROVIDERS: PCP Family Medicine; Visit Provider Student in an Organized Health Care Education/Training Program
DX: M77.31 Calcaneal spur, right foot (principal); M77.32 Calcaneal spur, left foot; M72.2 Plantar fascial fibromatosis; L85.8 Other specified epidermal thickening; M79.671 Pain in right foot; M79.672 Pain in left foot; L85.1 Acquired keratosis [keratoderma] palmaris et plantaris
CPT/HCPCS: 99204

== ENCOUNTER → 2025-06-13 10:47 | Outpatient (BNVA) | payer OTHER, SELFPAY | PROVIDERS: PCP Family Medicine; Visit Provider Student in an Organized Health Care Education/Training Program | DX: M77.31 Calcaneal spur, right foot (principal); M77.32 Calcaneal spur, left foot; M72.2 Plantar fascial fibromatosis; L85.8 Other specified epidermal thickening; M79.671 Pain in right foot; M79.672 Pain in left foot; L85.1 Acquired keratosis [keratoderma] palmaris et plantaris | CPT/HCPCS: 99202 ==